=== PATIENT | male | born 1970 | race Caucasian/White ===

== ENCOUNTER 2019-06-11 09:04 | Emergency (ER) | payer BC ==
[2019-06-11] MEDS ORDERED: Sodium Chloride 0.9% 2.5 ML Syringe FLUSH PRN (09:31)
[2019-06-11] MEDS ORDERED: Aspirin 81 MG Tab.Chew PO ONE (09:31)
[2019-06-11] MEDS ORDERED: Sodium Chloride 0.9% 10 ML SDV IV PRN (09:31)
[2019-06-11] MEDS ORDERED: Sodium Chloride 0.9% 10 ML Syringe FLUSH PRN (09:31)
[2019-06-11 09:53] LABS: BLOOD UREA NITROGEN,BUN 22 mg/dL (7.0-18.0); CARBON DIOXIDE,CO2 22.3 mmol/L (21.0-32.0); CHLORIDE,CL 107 mmol/L (98-107); GLUCOSE RANDOM 105 mg/dL (74-106); POTASSIUM,K 4.7 mmol/L (3.5-5.1); SODIUM,NA 142 mmol/L (136-148)
--- NOTE | 2019-06-11 09:57 | CR ---
INDICATION: Chest pain. COMPARISON: None. TECHNIQUE: Portable AP chest. FINDINGS: Normal size cardiac silhouette. Clear lung bauer with no evidence of acute pneumonic infiltrates or CHF. No pneumothorax or pleural effusion. IMPRESSION: Negative portable AP chest. Dictated by Alireza Mir MD @ Jun 11 2019 9:55AM Signed by Dr. Alireza Mir @ Jun 11 2019 9:56AM
--- NOTE | 2019-06-11 13:52 | EDM.PDOC ---
ED HPI GENERAL MEDICAL PROBLEM - General Chief Complaint: General Stated Complaint: SOB Time Seen by Provider: 06/11/19 09:30 Source of Information: Reports: Patient History Limitations: Reports: No Limitations - History of Present Illness INITIAL COMMENTS - FREE TEXT/NARRATIVE: HISTORY AND PHYSICAL: History of present illness: Patient is a 48-year-old male presents to the ED with complaint of shortness of breath and palpitations. He states he was working this morning when he suddenly felt his heart racing, short of breath and dizzy. Symptoms have since resolved. He denies chest pain, cough, fevers, headache, nausea, vomiting, abdominal pain , diaphoresis. Past medical history of hypertension and TOSHIA on CPAP. Review of systems: As per history of present illness and below otherwise all systems reviewed and negative. Past medical history: As per history of present illness and as reviewed below otherwise noncontributory. Surgical history: As per history of present illness and as reviewed below otherwise noncontributory. Social history: No reported history of drug or alcohol abuse. Family history: As per history of present illness and as reviewed below otherwise noncontributory. Physical exam: General: Patient sitting comfortably in no acute distress and nontoxic appearing HEENT: Atraumatic, normocephalic, pupils reactive, negative for conjunctival pallor or scleral icterus, mucous membranes moist, throat clear, neck supple, nontender, trachea midline. No meningeal signs. Lungs: Clear to auscultation, breath sounds equal bilaterally, chest nontender. Heart: S1S2, regular, negative for clicks, rubs, or overt murmur. Abdomen: Soft, nondistended, nontender. Negative for masses or hepatosplenomegaly. Negative for costovertebral tenderness. No rigidity, rebound , guarding. Pelvis: Stable nontender. Genitourinary: Deferred. Rectal: Deferred. Extremities: Atraumatic, negative for cords or calf pain. Neurovascular unremarkable. Neuro: Awake, alert, oriented. Cranial nerves II through XII unremarkable. Cerebellum unremarkable. Motor and sensory unremarkable throughout. Exam nonfocal. Notes: Patient advised to follow up with PCP for further work up including zio patch. EKG showed NSR while in ED. Diagnostics: CBC, CMP, troponin, EKG, CXR Therapeutics: [] Prescriptions: Impression: Palpitations Plan: Follow up with primary care provider Return to ED as needed as discussed Definitive disposition and diagnosis as appropriate pending reevaluation and review of above. - Related Data Allergies Allergy/AdvReac Type Severity Reaction Status Date / Time No Known Allergies Allergy Verified 06/11/19 09:18 Home Meds: Home Meds Fish Oil/Borage/Flax/Om3,6,9#1 [[place] 3-6-9 Complex Softgel] 1 each PO DAILY 10/26 [History] Rutin/Hesp/Bioflav/C/Herb#196 [Bioflex] 2 cap PO BID 01/15/14 [History] Allopurinol [Zyloprim] 100 mg PO DAILY 06/11/19 [History] Diclofenac Sodium [Voltaren] 75 mg PO BID 06/11/19 [History] Lisinopril 40 mg PO DAILY 06/11/19 [History] Metoprolol Succinate 50 mg PO DAILY 06/11/19 [History] Past Medical History HEENT History: Reports: None Cardiovascular History: Reports: Hypertension Respiratory History: Reports: None Genitourinary History: Reports: None Musculoskeletal History: Reports: Gout Neurological History: Reports: None Psychiatric History: Reports: None Endocrine/Metabolic History: Reports: None Hematologic History: Reports: None Immunologic History: Reports: None Oncologic (Cancer) History: Reports: None Dermatologic History: Reports: None - Infectious Disease History Infectious Disease History: Reports: None - Past Surgical History Head Surgeries/Procedures: Reports: None GI Surgical History: Reports: Appendectomy, Cholecystectomy Other GI Surgeries/Procedures: Appendix 2000, galbladder 2009 Musculoskeletal Surgical History: Reports: Hip Replacement Other Musculoskeletal Surgeries/Procedures:: January 2015 Social & Family History - Family History Family Medical History: Noncontributory - Tobacco Use Smoking Status *Q: Never Smoker Second Hand Smoke Exposure: No - Caffeine Use Caffeine Use: Reports: Coffee - Recreational Drug Use Recreational Drug Use: No ED ROS GENERAL - Review of Systems Review Of Systems: ROS reveals no pertinent complaints other than HPI. ED EXAM, GENERAL - Physical Exam Exam: See Below (see dictation) Course - Vital Signs Last Recorded V/S: Last Vital Signs Temp 97.6 F 06/11/19 09:24 Pulse 54 L 06/11/19 10:19 Resp 15 06/11/19 10:19 BP 137/77 06/11/19 10:19 Pulse Ox 96 06/11/19 10:19 - Orders/Labs/Meds Orders: Active Orders 24 hr Category Date Time Status Cardiac Monitoring [RC] . DIRECTED Care 06/11/19 09:31 Active EKG Documentation Completion [RC] STAT Care 06/11/19 09:31 Active Oxygen Therapy [RC] PRN Care 06/11/19 09:31 Active Pulse Oximetry [RC] CONTINUOUS Care 06/11/19 09:31 Active Peripheral IV Insertion Adult [OM.PC] Stat Oth 06/11/19 09:31 Ordered Labs: Laboratory Tests 06/11/19 06/11/19 06/11/19 Range/Units 09:10 09:10 09:10 WBC 7.34 (4.0-11.0) K/uL RBC 4.88 (4.50-5.90) M/uL Hgb 14.7 (13.0-17.0) g/dL Hct 44.3 (38.0-50.0) % MCV 90.8 (80.0-98.0) fL MCH 30.1 (27.0-32.0) pg MCHC 33.2 (31.0-37.0) g/dL RDW Std Deviation 43.7 (28.0-62.0) fl RDW Coeff of Ella 13 (11.0-15.0) % Plt Count 238 (150-400) K/uL MPV 11.50 (7.40-12.00) fL Neut % (Auto) 62.3 (48.0-80.0) % Lymph % (Auto) 24.9 (16.0-40.0) % [place] % (Auto) 9.4 (0.0-15.0) % Eos % (Auto) 3.0 (0.0-7.0) % Baso % (Auto) 0.4 (0.0-1.5) % Neut # (Auto) 4.6 (1.4-5.7) K/uL Lymph # (Auto) 1.8 (0.6-2.4) K/uL [place] # (Auto) 0.7 (0.0-0.8) K/uL Eos # (Auto) 0.2 (0.0-0.7) K/uL Baso # (Auto) 0.0 (0.0-0.1) K/uL Nucleated RBC % 0.0 /100WBC Nucleated RBCs # 0 K/uL INR 0.87 Sodium 142 (136-148) mmol/L Potassium 4.7 (3.5-5.1) mmol/L Chloride 107 (98-107) mmol/L Carbon Dioxide 22.3 (21.0-32.0) mmol/L BUN 22 H (7.0-18.0) mg/dL Creatinine 1.1 (0.8-1.3) mg/dL Est Cr Clr Drug Dosing 86.52 mL/min Estimated GFR (MDRD) > 60.0 ml/min Glucose 105 (74-106) mg/dL Calcium 8.8 (8.5-10.1) mg/dL Total Bilirubin 0.5 (0.2-1.0) mg/dL AST 29 (15-37) IU/L ALT 33 (14-63) IU/L Alkaline Phosphatase 126 H (46-116) U/L Troponin I < 0.050 (0.000-0.056) ng/mL Total Protein 7.3 (6.4-8.2) g/dL Albumin 3.4 (3.4-5.0) g/dL Globulin 3.9 (2.6-4.0) g/dL Albumin/Globulin Ratio 0.9 (0.9-1.6) Meds: Medications Discontinued Medications Generic Name Dose Route Start Last Admin Trade Name Freq PRN Reason Stop Dose Admin Aspirin 324 mg 06/11/19 09:31 06/11/19 09:44 Aspirin PO 06/11/19 09:32 324 mg ONETIME ONE Administration Sodium Chloride 10 ml 06/11/19 09:31 06/11/19 09:44 Saline Flush FLUSH 10 ml ASDIRECTED PRN Administration Keep Vein Open Sodium Chloride 2.5 ml 06/11/19 09:31 06/11/19 09:44 Saline Flush FLUSH 2.5 ml ASDIRECTED PRN Administration Keep Vein Open Sodium Chloride 10 ml 06/11/19 09:31 06/11/19 09:45 Normal Saline IV 10 ml ASDIRECTED PRN Administration IV Use Departure - Departure Time of Disposition: 13:51 Disposition: Home, Self-Care 01 Condition: Good Clinical Impression: Palpitations - Discharge Information Instructions: Shortness of Breath, Adult, [id number] Referrals: PCP,Unknown [Primary Care Provider] - Forms: ED Department Discharge Additional Instructions: The following information is given to patients seen in the emergency department who are being discharged to home. This information is to outline your options for follow-up care. We provide all patients seen in our emergency department with a follow-up referral. The need for follow-up, as well as the timing and circumstances, are variable depending upon the specifics of your emergency department visit. If you don't have a primary care physician on staff, we will provide you with a referral. We always advise you to contact your personal physician following an emergency department visit to inform them of the circumstance of the visit and for follow-up with them and/or the need for any referrals to a consulting specialist. The emergency department will also refer you to a specialist when appropriate. This referral assures that you have the opportunity for follow-up care with a specialist. All of these measure are taken in an effort to provide you with optimal care, which includes your follow-up. Under all circumstances we always encourage you to contact your private physician who remains a resource for coordinating your care. When calling for follow-up care, please make the office aware that this follow-up is from your recent emergency room visit. If for any reason you are refused follow-up, please contact the [facility] Emergency Department at and asked to speak to the emergency department charge nurse. [facility] [address] [place] [address] [place] [address] 1. Please use Tylenol and/or Ibuprofen as needed for pain and fever management. 2. Get plenty of Rest. Encourage fluids to prevent dehydration. 3. Please follow up with your primary care provider. Return to the ED as needed as discussed. - My Orders Last 24 Hours: My Active Orders 06/11/19 09:31 Cardiac Monitoring [RC] . DIRECTED EKG Documentation Completion [RC] STAT Oxygen Therapy [RC] PRN Pulse Oximetry [RC] CONTINUOUS Peripheral IV Insertion Adult [OM.PC] Stat - Assessment/Plan Last 24 Hours: My Active Orders 06/11/19 09:31 Cardiac Monitoring [RC] . DIRECTED EKG Documentation Completion [RC] STAT Oxygen Therapy [RC] PRN Pulse Oximetry [RC] CONTINUOUS Peripheral IV Insertion Adult [OM.PC] Stat
== END 2019-06-11 10:36 | disposition home or self-care (01) ==
LOC: MW.ED 09:04
DX: R00.2 Palpitations (principal); I10 Essential (primary) hypertension; M10.9 Gout, unspecified; Z79.899 Other long term (current) drug therapy
CPT/HCPCS: 36415; 71045; 80053; 84484; 85025; 85610; 93005; 99285; A9270; J7050; 99284

== ENCOUNTER 2021-03-31 07:34 | Inpatient (IN) | payer BC, OTHER ==
[2021-03-31] MEDS ORDERED: Sodium Chloride 0.9% 10 ML Syringe FLUSH PRN (07:43)
[2021-03-31] MEDS ORDERED: Aspirin 81 MG Tab.Chew PO ONE (07:43)
[2021-03-31] MEDS ORDERED: Sodium Chloride 0.9% 2.5 ML Syringe FLUSH PRN (07:43)
[2021-03-31] MEDS ORDERED: Ketorolac 15 MG/ML SDV IVPUSH ONE (07:57)
--- NOTE | 2021-03-31 08:25 | CR ---
Indication: Dyspnea Comparison: Single view chest June 11, 2019 Technique: Single AP view chest Findings: There is hyperinflation and chronic interstitial change. There are extensive interstitial ground-glass and airspace opacities seen throughout the bilateral hemithoraces likely representing multifocal infiltrates versus pulmonary edema. The cardiac silhouette is mildly prominent. The bony thorax is grossly intact. Impression: Extensive interstitial and ground-glass airspace opacities seen throughout the bilateral hemithoraces likely representing multifocal infiltrates versus pulmonary edema. Correlate with history of kent virus infection. Dictated by Jcarlos Garsia MD @ 03/31/2021 8:24:[address] Jcarlos Garsia @ Mar 31 2021 8:24AM
[2021-03-31 08:38] LABS: BLOOD UREA NITROGEN,BUN 22 mg/dL (7.0-18.0); CHLORIDE,CL 98 mmol/L (98-107); GLUCOSE RANDOM 151 mg/dL (74-106); POTASSIUM,K 3.8 mmol/L (3.5-5.1); SODIUM,NA 133 mmol/L (136-148)
--- NOTE | 2021-03-31 10:21 | CT ---
Indication: Dyspnea, positive for kent virus Technique: Volumetric multidetector CT images of the chest were obtained after the administration of IV contrast. 100 cc Isovue 370 low osmolar intravenous contrast Comparison: Single view chest March 31, 2021 Findings: The thoracic inlet and thyroid gland are unremarkable. The thoracic aorta is nonaneurysmal. There is no central filling defect to suggest pulmonary embolism. There are reactive mediastinal and hilar lymph nodes appreciated. There is mild to moderate central bronchial thickening. There are extensive ground-glass, airspace, and interstitial opacities likely representing evolving multifocal bilateral infiltrates and/or superimposed pulmonary edema. There is no pneumothorax or pleural effusion. There is no evidence of pulmonary mass or suspicious pulmonary nodule. The partially visualized upper abdomen demonstrates prior cholecystectomy with mild hepatic steatosis. The thoracic vertebral body heights are grossly maintained with mild multi-level degenerative disc disease. Impression: Extensive interstitial, ground-glass and airspace opacities throughout the bilateral hemithoraces commensurate with multifocal bilateral infiltrates and/or pulmonary edema with reactive mediastinal and hilar lymph nodes. No definite evidence of pulmonary embolus. Please note that all CT scans at this facility use dose modulation, iterative reconstruction, and/or weight-based dosing when appropriate to reduce radiation dose to as low as reasonably achievable. Dictated by Jcarlos Garsia MD @ 03/31/2021 10:19:[address] Jcarlos Garsia @ Mar 31 2021 10:19AM
[2021-03-31] MEDS ORDERED: Dexamethasone 4 MG Tab PO STA (10:33)
--- NOTE | 2021-03-31 11:27 | PCM.HP.2 ---
H&P History of Present Illness - General Date of Service: 03/31/21 Admit Problem/Dx: Admission Diagnosis/Problem Admission Diagnosis/Problem Hypoxia - History of Present Illness Initial Comments - Free Text/Narative: 50-year-old male with past medical history including hypertension, gout, presents to the ER today with a cough, hypoxia. Patient admitted for Covid pneumonia, hypoxia. Patient states he developed a cough roughly 1 week ago. Patient states cough became worse last night. Patient also states he had a fever this morning on arrival to the ED. Patient's oxygen saturation was roughly 80% on arrival to the ED, patient was placed on 5-6 L nasal cannula oxygen saturations improved to 92%. Patient denies any recent contact with sick individuals. Patient denies chills, nausea, vomiting, abdominal pain, diarrhea. Patient denies chest pain, shortness of breath, dizziness, lightheadedness. Lab work on admission include white blood cell count 9.3, D-dimer 1.91, sodium 133, potassium 3.8, BUN 22, creatinine 1.5, hemoglobin A1c 5.6,. Patient is COVID-[address] angio negative for pulmonary embolism. Interstitial groundglass opacities with multifocal bilateral infiltrates and or pulmonary edema with mediastinal and hilar lymph nodes. Patient started on 200mg remdesivir in the ED Patient admitted to Inpatient MedSurg unit, will continue remdesivir, dexamethasone, oxygen support as needed. chest Pain Score (Numeric/FACES): 3 - Related Data Allergies/Adverse Reactions: Allergies Allergy/AdvReac Type Severity Reaction Status Date / Time No Known Allergies Allergy Verified 03/31/21 07:52 Home Medications: Home Meds Rutin/Hesp/Bioflav/C/Edykqw400 [Bioflex] 2 cap PO BID 01/15/14 [History] Diclofenac Sodium [Voltaren] 75 mg PO BID 06/11/19 [History] Metoprolol Succinate 50 mg PO DAILY 06/11/19 [History] allopurinoL [Zyloprim] 100 mg PO DAILY 06/11/19 [History] lisinopriL [Lisinopril] 40 mg PO DAILY 06/11/19 [History] Past Medical History HEENT History: Reports: None Cardiovascular History: Reports: Hypertension Respiratory History: Reports: None Gastrointestinal History: Reports: None Genitourinary History: Reports: None Musculoskeletal History: Reports: Gout Neurological History: Reports: None Psychiatric History: Reports: None Endocrine/Metabolic History: Reports: None Hematologic History: Reports: None Immunologic History: Reports: None Oncologic (Cancer) History: Reports: None Dermatologic History: Reports: None - Infectious Disease History Infectious Disease History: Reports: None - Past Surgical History Head Surgeries/Procedures: Reports: None HEENT Surgical History: Reports: None Cardiovascular Surgical History: Reports: None Respiratory Surgical History: Reports: None GI Surgical History: Reports: Appendectomy, Cholecystectomy Other GI Surgeries/Procedures: Appendix 2001, galbladder 2010 Male Surgical History: Reports: None Endocrine Surgical History: Reports: None Neurological Surgical History: Reports: None Musculoskeletal Surgical History: Reports: Hip Replacement Other Musculoskeletal Surgeries/Procedures:: January 2015 Oncologic Surgical History: Reports: None Dermatological Surgical History: Reports: None Social & Family History - Family History Family Medical History: No Pertinent Family History - Tobacco Use Tobacco Use Status *Q: Never Tobacco User - Caffeine Use Caffeine Use: Reports: Coffee - Recreational Drug Use Recreational Drug Use: No H&P Review of Systems - Review of Systems: Review Of Systems: See Below General: Denies: Fever, Chills, Weakness Pulmonary: Reports: Cough. Denies: Shortness of Breath, Wheezing Cardiovascular: Denies: Chest Pain, Edema Gastrointestinal: Denies: Abdominal Pain, Constipation, Diarrhea Psychiatric: Denies: Confusion, Depression Neurological: Denies: Confusion Exam - Exam Exam: See Below - Vital Signs Vital Signs: Last Vital Signs Temp 98.8 F 03/31/21 10:45 Pulse 73 03/31/21 10:45 Resp 20 03/31/21 10:45 BP 116/50 L 03/31/21 10:45 Pulse Ox 94 L 03/31/21 10:45 Weight: 329 lb - Exam General: Alert, Oriented Lungs: Clear to Auscultation, Normal Respiratory Effort Cardiovascular: Regular Rate, Regular Rhythm GI/Abdominal Exam: Soft, Non-Tender Extremities: No Pedal Edema Neuro Extensive - Mental Status: Alert, Oriented x3 Psychiatric: Alert - Patient Data Lab Results Last 24 hrs: Laboratory Results - last 24 hr 03/31/21 03/31/21 03/31/21 Range/Units 07:51 07:56 07:56 WBC 9.30 (4.0-11.0) K/uL RBC 4.84 (4.50-5.90) M/uL Hgb 14.7 (13.0-17.0) g/dL Hct 42.5 (38.0-50.0) % MCV 87.8 (80.0-98.0) fL MCH 30.4 (27.0-32.0) pg MCHC 34.6 (31.0-37.0) g/dL RDW Std Deviation 44.1 (28.0-62.0) fl RDW Coeff of Ella 14 (11.0-15.0) % Plt Count 218 (150-400) K/uL MPV 10.50 (7.40-12.00) fL Neut % (Auto) 80.3 H (48.0-80.0) % Lymph % (Auto) 9.6 L (16.0-40.0) % [place] % (Auto) 9.8 (0.0-15.0) % Eos % (Auto) 0.1 (0.0-7.0) % Baso % (Auto) 0.2 (0.0-1.5) % Neut # (Auto) 7.5 H (1.4-5.7) K/uL Lymph # (Auto) 0.9 (0.6-2.4) K/uL [place] # (Auto) 0.9 H (0.0-0.8) K/uL Eos # (Auto) 0.0 (0.0-0.7) K/uL Baso # (Auto) 0.0 (0.0-0.1) K/uL Nucleated RBC % 0.0 /100WBC Nucleated RBCs # 0 K/uL INR 0.94 D-Dimer, Quantitative 1.91 H (0.0-0.50) mg/L FEU Sodium (136-148) mmol/L Potassium (3.5-5.1) mmol/L Chloride (98-107) mmol/L Carbon Dioxide (21.0-32.0) mmol/L BUN (7.0-18.0) mg/dL Creatinine (0.8-1.3) mg/dL Est Cr Clr Drug Dosing mL/min Estimated GFR (MDRD) ml/min Glucose (74-106) mg/dL Lactic Acid (0.4-2.0) mmol/L Calcium (8.5-10.1) mg/dL Magnesium (1.8-2.4) mg/dL Total Bilirubin (0.2-1.0) mg/dL Direct Bilirubin (0.0-0.5) mg/dL AST (15-37) IU/L ALT (14-63) IU/L Alkaline Phosphatase (46-116) U/L Troponin I (0.000-0.056) ng/mL Total Protein (6.4-8.2) g/dL Albumin (3.4-5.0) g/dL Globulin (2.6-4.0) g/dL Albumin/Globulin Ratio (0.9-1.6) SARS-CoV-2 RNA (YAEL) POSITIVE H (NEGATIVE) 03/31/21 03/31/21 03/31/21 Range/Units 07:56 07:56 07:56 WBC (4.0-11.0) K/uL RBC (4.50-5.90) M/uL Hgb (13.0-17.0) g/dL Hct (38.0-50.0) % MCV (80.0-98.0) fL MCH (27.0-32.0) pg MCHC (31.0-37.0) g/dL RDW Std Deviation (28.0-62.0) fl RDW Coeff of Ella (11.0-15.0) % Plt Count (150-400) K/uL MPV (7.40-12.00) fL Neut % (Auto) (48.0-80.0) % Lymph % (Auto) (16.0-40.0) % [place] % (Auto) (0.0-15.0) % Eos % (Auto) (0.0-7.0) % Baso % (Auto) (0.0-1.5) % Neut # (Auto) (1.4-5.7) K/uL Lymph # (Auto) (0.6-2.4) K/uL [place] # (Auto) (0.0-0.8) K/uL Eos # (Auto) (0.0-0.7) K/uL Baso # (Auto) (0.0-0.1) K/uL Nucleated RBC % /100WBC Nucleated RBCs # K/uL INR D-Dimer, Quantitative (0.0-0.50) mg/L FEU Sodium 133 L (136-148) mmol/L Potassium 3.8 (3.5-5.1) mmol/L Chloride 98 (98-107) mmol/L Carbon Dioxide 25.0 (21.0-32.0) mmol/L BUN 22 H (7.0-18.0) mg/dL Creatinine 1.5 H (0.8-1.3) mg/dL Est Cr Clr Drug Dosing 62.05 mL/min Estimated GFR (MDRD) 49.3 ml/min Glucose 151 H (74-106) mg/dL Lactic Acid 1.8 (0.4-2.0) mmol/L Calcium 8.3 L (8.5-10.1) mg/dL Magnesium 2.1 (1.8-2.4) mg/dL Total Bilirubin 0.7 (0.2-1.0) mg/dL Direct Bilirubin 0.10 (0.0-0.5) mg/dL AST 62 H (15-37) IU/L ALT 58 (14-63) IU/L Alkaline Phosphatase 79 (46-116) U/L Troponin I < 0.050 (0.000-0.056) ng/mL Total Protein 7.5 (6.4-8.2) g/dL Albumin 2.8 L (3.4-5.0) g/dL Globulin 4.7 H (2.6-4.0) g/dL Albumin/Globulin Ratio 0.6 L (0.9-1.6) SARS-CoV-2 RNA (YAEL) (NEGATIVE) Result Diagrams: 03/31/21 07:56 03/31/21 07:56 Jose Rafael Results Last 24 hrs: Microbiology 03/31/21 08:10 Anaerobic Blood Culture - Final Blood - Venous - Lab Draw Sepsis Event Note - Evaluation Sepsis Screening Result: No Definite Risk - Focused Exam Vital Signs: Vital Signs Temp Pulse Resp BP Pulse Ox 03/31/21 10:45 98.8 F 73 20 116/50 L 94 L 03/31/21 09:50 63 92 L 03/31/21 09:11 71 140/56 L 93 L 03/31/21 08:41 71 148/58 H 94 L 03/31/21 08:11 77 167/53 H 93 L 03/31/21 07:51 82 93 L 03/31/21 07:49 102.5 F H 91 22 H 167/53 H 80 L - Problem List (1) COVID-19 SNOMED Code(s): 026261246 ICD Code: U07.1 - COVID-19 Status: Acute Current Visit: Yes (2) HTN (hypertension) SNOMED Code(s): 67855456 ICD Code: I10 - ESSENTIAL (PRIMARY) HYPERTENSION Status: Acute Current Visit: Yes (3) Gout SNOMED Code(s): 52864345 ICD Code: M10.9 - GOUT, UNSPECIFIED Status: Acute Current Visit: Yes Problem List Initiated/Reviewed/Updated: Yes Orders Last 24hrs: Active Orders 24 hr Category Date Time Status Admission Status [Patient Status] [ADT] Stat ADT 03/31/21 10:38 Active Cardiac Monitoring [RC] . DIRECTED Care 03/31/21 07:43 Active EKG Documentation Completion [RC] STAT Care 03/31/21 07:42 Active Pulse Oximetry [RC] ASDIRECTED Care 03/31/21 07:43 Active BILIRUBIN DIRECT [CHEM] DAILY Lab 04/01/21 10:45 Ordered BILIRUBIN DIRECT [CHEM] DAILY Lab 04/02/21 10:45 Ordered BILIRUBIN DIRECT [CHEM] DAILY Lab 04/03/21 10:45 Ordered BILIRUBIN DIRECT [CHEM] DAILY Lab 04/04/21 10:45 Ordered CULTURE BLOOD [BC] Stat Lab 03/31/21 08:05 Received CULTURE BLOOD [BC] Stat Lab 03/31/21 08:10 Results Remdesivir 200 mg Med 03/31/21 10:37 Active Sodium Chloride 0.9% [Normal Saline] 250 ml IV ONETIME Sodium Chloride 0.9% [Saline Flush] Med 03/31/21 07:43 Active 10 ml FLUSH ASDIRECTED PRN Sodium Chloride 0.9% [Saline Flush] Med 03/31/21 07:43 Active 2.5 ml FLUSH ASDIRECTED PRN Blood Culture x2 Reflex Set [OM.PC] Stat Oth 03/31/21 07:56 Ordered Saline Lock Insert [OM.PC] Stat Oth 03/31/21 07:43 Ordered Medication Orders Remdesivir 200 mg/ Sodium (Chloride) 250 mls @ 250 mls/hr IV ONETIME ONE Stop: 03/31/21 11:36 Sodium Chloride (Sodium Chloride 0.9% 10 Ml Syringe) 10 ml FLUSH ASDIRECTED PRN PRN Reason: Keep Vein Open Last Admin: 03/31/21 08:00 Dose: 10 ml Documented by: CARLOS Sodium Chloride (Sodium Chloride 0.9% 2.5 Ml Syringe) 2.5 ml FLUSH ASDIRECTED PRN PRN Reason: Keep Vein Open Last Admin: 03/31/21 08:00 Dose: 2.5 ml Documented by: CARLOS Assessment/Plan Comment:: Covid [place]- Remdesivir (200mg X 1, day 2-5 100mg X 4) Dexamethasone 6 mg p.o. X 10 days Levaquin 750mg Q24 Prone positioning, Oxygen support-maintain 02 saturations above 92%(Currently on High Flow), incentive spirometry, Combivent, Lovenox 40mg, Tylenol fever/pain, Telemetry
[2021-03-31] MEDS: REMDESIVIR 200 MG in Sodium Chloride 0.9% 250 ML IV ONE ×2 (11:33→11:37)
[2021-03-31] MEDS ORDERED: Albuterol/Ipratropium 3.0-0.5 MG/3 ML Neb Soln NEB PRN (11:34)
--- NOTE | 2021-03-31 12:07 | PCM.EKG ---
#1 Interpretation EKG Date: 03/31/21 Time: 07:39 Rhythm: NSR Rate (Beats/Min): 83 [place]: Normal P-Wave: Present QRS: Normal ST-T: Normal QT: Normal Comparison: No Change (06/11/19) EKG Interpretation Comments: Sinus Rhythm
[2021-03-31] MEDS: Albuterol/Ipratropium 4 GM Inhalation Spray INH SCH ×2 (12:55→18:00)
[2021-03-31] MEDS: Enoxaparin 40 MG/0.4 ML Syringe SUBCUT SCH (12:56)
[2021-03-31] MEDS: Levofloxacin 750 MG Tab PO SCH (12:56)
[2021-03-31 13:13] LABS: HEMOGLOBIN A1C 5.6 %
[2021-03-31] MEDS ORDERED: Iopamidol 755 MG/ML 500 ML Multipack Bottle IVPUSH STA (15:25)
[2021-03-31] MEDS ORDERED: Benzonatate 100 MG Cap PO PRN (18:57)
[2021-03-31] MEDS ORDERED: Lactated Ringers 500 ML IV ONE (18:58)
--- NOTE | 2021-03-31 20:03 | EDM.PDOC ---
ED HPI GENERAL MEDICAL PROBLEM - General Chief Complaint: Respiratory Problem Stated Complaint: SHORTNESS OF BREATH Time Seen by Provider: 03/31/21 07:36 - History of Present Illness INITIAL COMMENTS - FREE TEXT/NARRATIVE: CHIEF COMPLAINT(S): Shortness of breath HISTORY OF PRESENT ILLNESS: This is a 50-year-old man with a past medical history of hypertension and gout who comes to the emergency department with a chief complaint of cough and shortness of breath. The patient states that for approximately 1 week he has been experiencing a cough however it started to worsen last night. He denies any chest pain, abdominal pain, nausea or vomiting. He denies any diaphoresis. He denies any lower extremity edema, recent travel, recent surgery or prior study of DVT or PE. He denies any recent contact with any Covid patients or any other person known with Covid. He denies any fevers but states he does feel some chills. He denies any exertional dyspnea or orthopnea. Denies any pain at all whatsoever. The cough is no nproductive. REVIEW OF SYSTEMS: Constitutional: Positive for chills Eyes: Denies eye pain Ears, Nose, Mouth, & Throat: Denies earache Cardiovascular: Denies chest pain Respiratory: Positive for shortness of breath and cough Gastrointestinal: Denies Nausea, vomiting, diarrhea, hematochezia. Genitourinary: Denies hematuria Skin:Denies a rash MSK: Denies joint pain Neurological: Denies blurred vision Psychiatric: Denies depression PAST MEDICAL HISTORY: As per history of present illness and as reviewed below otherwise noncontributory. SURGICAL HISTORY: As per history of present illness and as reviewed below otherwise noncontributory. SOCIAL HISTORY: As per history of present illness and as reviewed below otherwise noncontributory. FAMILY HISTORY: As per history of present illness and as reviewed below otherwise noncontributory. EXAMINATION OF ORGAN SYSTEMS/BODY AREAS: Constitutional: Blood pressure was 167/53, heart rate 91, respiratory rate 22 with an oxygen saturation of 80% on room air. Temperature 39.2 General: Obese gentleman who appears to be dyspneic but is speaking in full sentences Psychiatric: Appropriate mood and affect. Eyes: No scleral icterus or conjunctival erythema ENMT: Moist mucous membranes. No pharyngeal erythema Cardiovascular: Regular, rate, and rhythm. No gallops, murmurs, or rubs. Bilateral upper extremity pulses symmetric and intact. No peripheral edema. No JVD. Respiratory: Lungs clear to auscultation bilaterally. No wheezes, rales, or rhonchi. Speaking in full sentences. Mild increased work of breathing. Gastrointestinal: Soft, non-tender, non-distended. Normoactive bowel sounds Genitourinary: No suprapubic tenderness Musculoskeletal: Normal range of motion. Skin: No lesions or abrasions. Neurological: Alert, GCS 15 MEDICAL DECISION MAKING AND COURSE IN THE ED WITH INTERPRETATION/REVIEW OF DIAGNOSTIC STUDIES: This is a 50-year-old man with a past medical history of hypertension and gout who comes to the emergency department with 1 week of worsening cough associated with shortness of breath who is dyspneic but speaking in full sentences who is hypoxic and febrile. At this time we did place the patient on nasal cannula at 5 L and his oxygen saturation with pulse oximetry and good waveform came up to 94%. Cardiac monitoring at this time did reveal sinus rhythm. At this time we will obtain labs including blood cultures. We will hold off on fluid administration at this time until further labs have been obtained. At this time the hypoxia and his appearance do appear suspicious for COVID-19 pneumonia and likely viral and unlikely bacterial. Will obtain a chest x-ray, EKG and obtain a D-dimer to evaluate need for possible pulmonary embolism. He is low risk however if this is Covid he does have high risk for pulmonary embolism. Patient was amenable to this plan. Laboratory analysis revealed an elevated D-dimer at 1.91, hyponatremia at 133, elevated BUN at 22 and a creatinine of 1.5, hyperglycemia and mild elevation AST at 62. Troponin was negative. Covid was positive. The radiological images were viewed by myself along with reading the report from the radiologist. Chest x-ray reveals bilateral interstitial and groundglass airspace opacities suggesting multifocal infiltrates versus pulmonary edema. Given the elevated D-dimer I discussed that we would obtain a CT angiogram. I discussed that he was Covid positive and given that he needs to be on oxygen we will admit him to the hospital pending further work-up. He was amenable to this plan. I did discuss this with his and encouraged her to quarantine given that she has been exposed. The radiological images were viewed by myself along with reading the report from the radiologist. CT angiogram of the chest does not reveal any acute pulmonary embolism. Extensive interstitial groundglass and airspace opacity through bilateral hemothoraces. After imaging I did contact our hospitalist Dr. Yo who accepted the patient for admission. I did start the patient on dexamethasone and remdesivir per hospitalist request. DISPOSITION: Patient was admitted to the hospital in stable condition. CONDITION: Serious PROCEDURES: Cardiac monitoring interpretation, pulse oximetry interpretation FINAL IMPRESSION(S)/DIAGNOSES: 1. Acute hypoxic respiratory failure requiring nasal cannula secondary to COVID-19 pneumonia 2. Acute COVID-19 pneumonia 3. Acute kidney injury Critical Care Procedure Note Authorized and performed by: Denzel Lugo M.D. Critical Care Time: 35 minutes Due to a high probability of clinically significant, life threatening deterioration, the patient required my highest level of preparedness to intervene emergently and I personally spent this critical care time directly and personally managing the patient. This critical care time included obtaining a history, examining the patient, pulse oximetry; ordering and review of studies; arranging urgent treatment with development of a management plan; evaluation of a patients reponse to treatment; frequent assessment; and discussions with other providers. This critical care time was performed to assess and manage the high probability of imminent, life threatening deterioration that could result in multiorgan failure. It was exclusive of separate billable procedures and treating other patients. Please see MDM section and rest of the note for further information on patient assessment and treatment. Please see MDM section and rest of the note for further information on patient assessment and treatment. Denzel Lugo M.D. chest Pain Score (Numeric/FACES): 1 - Related Data Allergies Allergy/AdvReac Type Severity Reaction Status Date / Time No Known Allergies Allergy Verified 03/31/21 07:52 Home Meds: Home Meds Rutin/Hesp/Bioflav/C/[id number] [Bioflex] 2 cap PO BID 01/15/14 [History] Diclofenac Sodium [Voltaren] 75 mg PO BID 06/11/19 [History] Metoprolol Succinate 50 mg PO DAILY 06/11/19 [History] allopurinoL [Zyloprim] 100 mg PO DAILY 06/11/19 [History] lisinopriL [Lisinopril] 40 mg PO DAILY 06/11/19 [History] Past Medical History HEENT History: Reports: None Cardiovascular History: Reports: Hypertension Respiratory History: Reports: Sleep Apnea Gastrointestinal History: Reports: None Genitourinary History: Reports: None Musculoskeletal History: Reports: Arthritis Neurological History: Reports: None Psychiatric History: Reports: None Endocrine/Metabolic History: Reports: None Hematologic History: Reports: None Immunologic History: Reports: None Oncologic (Cancer) History: Reports: None Dermatologic History: Reports: None - Infectious Disease History Infectious Disease History: Reports: None - Past Surgical History Head Surgeries/Procedures: Reports: None HEENT Surgical History: Reports: None Cardiovascular Surgical History: Reports: None Respiratory Surgical History: Reports: None GI Surgical History: Reports: Appendectomy, Cholecystectomy Other GI Surgeries/Procedures: Appendix 2001, galbladder 2009 Male Surgical History: Reports: None Endocrine Surgical History: Reports: None Neurological Surgical History: Reports: None Musculoskeletal Surgical History: Reports: Hip Replacement Other Musculoskeletal Surgeries/Procedures:: January 2015 Oncologic Surgical History: Reports: None Dermatological Surgical History: Reports: None Social & Family History - Family History Family Medical History: No Pertinent Family History HEENT: Reports: None : Reports: Dialysis Other Family History: Brother- Rene Toth Musculoskeletal: Reports: Gout Other Musculoskeletal Family History: Brother Neurological: Reports: MS Oncologic: Reports: Brain, Lung Other Oncologic Family History: Mom - Tobacco Use Tobacco Use Status *Q: Never Tobacco User Second Hand Smoke Exposure: No - Caffeine Use Caffeine Use: Reports: Soda - Recreational Drug Use Recreational Drug Use: No ED ROS GENERAL - Review of Systems Review Of Systems: See Below ED EXAM, GENERAL - Physical Exam Exam: See Below GI/Abdominal: Soft, Non-Tender Extremities: No Pedal Edema Course - Vital Signs Last Recorded V/S: Last Vital Signs Temp 36.8 C 03/31/21 19:56 Pulse 62 03/31/21 19:56 Resp 17 03/31/21 19:56 BP 139/62 03/31/21 19:56 Pulse Ox 86 L 03/31/21 19:56 - Orders/Labs/Meds Orders: Active Orders 24 hr Category Date Time Status Admission Status [Patient Status] [ADT] Stat ADT 03/31/21 10:38 Active Cardiac Monitoring [RC] Q8H Care 03/31/21 07:43 Active Pulse Oximetry [RC] ASDIRECTED Care 03/31/21 07:43 Active CULTURE BLOOD [BC] Stat Lab 03/31/21 08:05 Received CULTURE BLOOD [BC] Stat Lab 03/31/21 08:10 Results Sodium Chloride 0.9% [Saline Flush] Med 03/31/21 07:43 Active 10 ml FLUSH ASDIRECTED PRN Sodium Chloride 0.9% [Saline Flush] Med 03/31/21 07:43 Active 2.5 ml FLUSH ASDIRECTED PRN Blood Culture x2 Reflex Set [OM.PC] Stat Oth 03/31/21 07:56 Ordered Saline Lock Insert [OM.PC] Stat Ot 03/31/21 07:43 Ordered Medication Orders Acetaminophen (Acetaminophen 325 Mg Tab) 650 mg PO Q4H PRN PRN Reason: Pain (Mild 1-3)/fever Albuterol/Ipratropium (Albuterol/Ipratropium 4 Gm Inhalation [place]) 2 gm INH QID [facility] Last Admin: 03/31/21 18:00 Dose: 2 puff Documented by: Admin: 03/31/21 12:55 Dose: 2 puff Documented by: SHAWNEE Benzonatate (Benzonatate 100 Mg Cap) 200 mg PO Q8H PRN PRN Reason: Cough Dexamethasone (Dexamethasone 4 Mg Tab) 6 mg PO Q24H [facility] Enoxaparin Sodium (Enoxaparin 40 Mg/0.4 Ml Syringe) 40 mg SUBCUT Q24H [facility] Last Admin: 03/31/21 12:56 Dose: 40 mg Documented by: SHAWNEE Remdesivir 100 mg/ Sodium (Chloride) 100 mls @ 100 mls/hr IV Q24H [facility] Stop: 04/04/21 10:59 Levofloxacin (Levofloxacin 750 Mg Tab) 750 mg PO Q24H [facility] Last Admin: 03/31/21 12:56 Dose: 750 mg Documented by: SHAWNEE Metoprolol Succinate (Metoprolol Succinate 50 Mg Tab.Er) 50 mg PO DAILY [facility] Sodium Chloride (Sodium Chloride 0.9% 10 Ml Syringe) 10 ml FLUSH ASDIRECTED PRN PRN Reason: Keep Vein Open Last Admin: 03/31/21 08:00 Dose: 10 ml Documented by: CARLOS Sodium Chloride (Sodium Chloride 0.9% 2.5 Ml Syringe) 2.5 ml FLUSH ASDIRECTED PRN PRN Reason: Keep Vein Open Last Admin: 03/31/21 08:00 Dose: 2.5 ml Documented by: CARLOS Labs: Laboratory Tests 03/31/21 03/31/21 03/31/21 Range/Units 07:51 07:56 07:56 WBC 9.30 (4.0-11.0) K/uL RBC 4.84 (4.50-5.90) M/uL Hgb 14.7 (13.0-17.0) g/dL Hct 42.5 (38.0-50.0) % MCV 87.8 (80.0-98.0) fL MCH 30.4 (27.0-32.0) pg MCHC 34.6 (31.0-37.0) g/dL RDW Std Deviation 44.1 (28.0-62.0) fl RDW Coeff of Ella 14 (11.0-15.0) % Plt Count 218 (150-400) K/uL MPV 10.50 (7.40-12.00) fL Neut % (Auto) 80.3 H (48.0-80.0) % Lymph % (Auto) 9.6 L (16.0-40.0) % Traill % (Auto) 9.8 (0.0-15.0) % Eos % (Auto) 0.1 (0.0-7.0) % Baso % (Auto) 0.2 (0.0-1.5) % Neut # (Auto) 7.5 H (1.4-5.7) K/uL Lymph # (Auto) 0.9 (0.6-2.4) K/uL Traill # (Auto) 0.9 H (0.0-0.8) K/uL Eos # (Auto) 0.0 (0.0-0.7) K/uL Baso # (Auto) 0.0 (0.0-0.1) K/uL Nucleated RBC % 0.0 /100WBC Nucleated RBCs # 0 K/uL INR 0.94 D-Dimer, Quantitative 1.91 H (0.0-0.50) mg/L FEU Sodium (136-148) mmol/L Potassium (3.5-5.1) mmol/L Chloride (98-107) mmol/L Carbon Dioxide (21.0-32.0) mmol/L BUN (7.0-18.0) mg/dL Creatinine (0.8-1.3) mg/dL Est Cr Clr Drug Dosing mL/min Estimated GFR (MDRD) ml/min Glucose (74-106) mg/dL Hemoglobin A1c (4.5 - 6.2) % Lactic Acid (0.4-2.0) mmol/L Calcium (8.5-10.1) mg/dL Magnesium (1.8-2.4) mg/dL Total Bilirubin (0.2-1.0) mg/dL Direct Bilirubin (0.0-0.5) mg/dL AST (15-37) IU/L ALT (14-63) IU/L Alkaline Phosphatase (46-116) U/L Troponin I (0.000-0.056) ng/mL Total Protein (6.4-8.2) g/dL Albumin (3.4-5.0) g/dL Globulin (2.6-4.0) g/dL Albumin/Globulin Ratio (0.9-1.6) SARS-CoV-2 RNA (YAEL) POSITIVE H (NEGATIVE) 03/31/21 03/31/21 03/31/21 Range/Units 07:56 07:56 07:56 WBC (4.0-11.0) K/uL RBC (4.50-5.90) M/uL Hgb (13.0-17.0) g/dL Hct (38.0-50.0) % MCV (80.0-98.0) fL MCH (27.0-32.0) pg MCHC (31.0-37.0) g/dL RDW Std Deviation (28.0-62.0) fl RDW Coeff of Ella (11.0-15.0) % Plt Count (150-400) K/uL MPV (7.40-12.00) fL Neut % (Auto) (48.0-80.0) % Lymph % (Auto) (16.0-40.0) % Traill % (Auto) (0.0-15.0) % Eos % (Auto) (0.0-7.0) % Baso % (Auto) (0.0-1.5) % Neut # (Auto) (1.4-5.7) K/uL Lymph # (Auto) (0.6-2.4) K/uL Traill # (Auto) (0.0-0.8) K/uL Eos # (Auto) (0.0-0.7) K/uL Baso # (Auto) (0.0-0.1) K/uL Nucleated RBC % /100WBC Nucleated RBCs # K/uL INR D-Dimer, Quantitative (0.0-0.50) mg/L FEU Sodium 133 L (136-148) mmol/L Potassium 3.8 (3.5-5.1) mmol/L Chloride 98 (98-107) mmol/L Carbon Dioxide 25.0 (21.0-32.0) mmol/L BUN 22 H (7.0-18.0) mg/dL Creatinine 1.5 H (0.8-1.3) mg/dL Est Cr Clr Drug Dosing 62.05 mL/min Estimated GFR (MDRD) 49.3 ml/min Glucose 151 H (74-106) mg/dL Hemoglobin A1c (4.5 - 6.2) % Lactic Acid 1.8 (0.4-2.0) mmol/L Calcium 8.3 L (8.5-10.1) mg/dL Magnesium 2.1 (1.8-2.4) mg/dL Total Bilirubin 0.7 (0.2-1.0) mg/dL Direct Bilirubin 0.10 (0.0-0.5) mg/dL AST 62 H (15-37) IU/L ALT 58 (14-63) IU/L Alkaline Phosphatase 79 (46-116) U/L Troponin I < 0.050 (0.000-0.056) ng/mL Total Protein 7.5 (6.4-8.2) g/dL Albumin 2.8 L (3.4-5.0) g/dL Globulin 4.7 H (2.6-4.0) g/dL Albumin/Globulin Ratio 0.6 L (0.9-1.6) SARS-CoV-2 RNA (YAEL) (NEGATIVE) 03/31/21 Range/Units 07:57 WBC (4.0-11.0) K/uL RBC (4.50-5.90) M/uL Hgb (13.0-17.0) g/dL Hct (38.0-50.0) % MCV (80.0-98.0) fL MCH (27.0-32.0) pg MCHC (31.0-37.0) g/dL RDW Std Deviation (28.0-62.0) fl RDW Coeff of Ella (11.0-15.0) % Plt Count (150-400) K/uL MPV (7.40-12.00) fL Neut % (Auto) (48.0-80.0) % Lymph % (Auto) (16.0-40.0) % Traill % (Auto) (0.0-15.0) % Eos % (Auto) (0.0-7.0) % Baso % (Auto) (0.0-1.5) % Neut # (Auto) (1.4-5.7) K/uL Lymph # (Auto) (0.6-2.4) K/uL Traill # (Auto) (0.0-0.8) K/uL Eos # (Auto) (0.0-0.7) K/uL Baso # (Auto) (0.0-0.1) K/uL Nucleated RBC % /100WBC Nucleated RBCs # K/uL INR D-Dimer, Quantitative (0.0-0.50) mg/L FEU Sodium (136-148) mmol/L Potassium (3.5-5.1) mmol/L Chloride (98-107) mmol/L Carbon Dioxide (21.0-32.0) mmol/L BUN (7.0-18.0) mg/dL Creatinine (0.8-1.3) mg/dL Est Cr Clr Drug Dosing mL/min Estimated GFR (MDRD) ml/min Glucose (74-106) mg/dL Hemoglobin A1c 5.6 (4.5 - 6.2) % Lactic Acid (0.4-2.0) mmol/L Calcium (8.5-10.1) mg/dL Magnesium (1.8-2.4) mg/dL Total Bilirubin (0.2-1.0) mg/dL Direct Bilirubin (0.0-0.5) mg/dL AST (15-37) IU/L ALT (14-63) IU/L Alkaline Phosphatase (46-116) U/L Troponin I (0.000-0.056) ng/mL Total Protein (6.4-8.2) g/dL Albumin (3.4-5.0) g/dL Globulin (2.6-4.0) g/dL Albumin/Globulin Ratio (0.9-1.6) SARS-CoV-2 RNA (YAEL) (NEGATIVE) Meds: Medications Generic Name Dose Route Start Last Admin Trade Name Umbertoq PRN Reason Stop Dose Admin Acetaminophen 650 mg 03/31/21 11:57 Acetaminophen 325 Mg Tab PO Q4H PRN Pain (Mild 1-3)/fever Albuterol/Ipratropium 2 gm 03/31/21 12:00 03/31/21 18:00 Albuterol/Ipratropium 4 Gm Inhalation [place] INH 2 puff QID CELESTE Administration Benzonatate 200 mg 03/31/21 18:57 Benzonatate 100 Mg Cap PO Q8H PRN Cough Dexamethasone 6 mg 04/01/21 10:00 Dexamethasone 4 Mg Tab PO Q24H [facility] Enoxaparin Sodium 40 mg 03/31/21 12:00 03/31/21 12:56 Enoxaparin 40 Mg/0.4 Ml Syringe SUBCUT 40 mg Q24H CELESTE Administration Remdesivir 100 mg/ Sodium 100 mls @ 100 mls/hr 04/01/21 10:00 Chloride IV 04/04/21 10:59 Q24H CELESTE Levofloxacin 750 mg 03/31/21 12:00 03/31/21 12:56 Levofloxacin 750 Mg Tab PO 750 mg Q24H CELESTE Administration Metoprolol Succinate 50 mg 04/01/21 09:00 Metoprolol Succinate 50 Mg Tab.Er PO DAILY CELESTE Sodium Chloride 10 ml 03/31/21 07:43 03/31/21 08:00 Sodium Chloride 0.9% 10 Ml Syringe FLUSH 10 ml ASDIRECTED PRN Administration Keep Vein Open Sodium Chloride 2.5 ml 03/31/21 07:43 03/31/21 08:00 Sodium Chloride 0.9% 2.5 Ml Syringe FLUSH 2.5 ml ASDIRECTED PRN Administration Keep Vein Open Discontinued Medications Generic Name Dose Route Start Last Admin Trade Name Freq PRN Reason Stop Dose Admin Albuterol/Ipratropium 3 ml 03/31/21 11:34 Albuterol/Ipratropium 3.0-0.5 Mg/3 Ml Neb Soln NEB Q4HRRT PRN Shortness of Breath Allopurinol 100 mg 04/01/21 09:00 Allopurinol 100 Mg Tab PO DAILY CELESTE Aspirin 324 mg 03/31/21 07:43 03/31/21 08:01 Aspirin 81 Mg Tab.Chew PO 03/31/21 07:44 324 mg ONETIME ONE Administration Dexamethasone 6 mg 03/31/21 10:33 03/31/21 11:34 Dexamethasone 4 Mg Tab PO 03/31/21 10:34 6 mg DAILY STA Administration Remdesivir 200 mg/ Sodium 250 mls @ 250 mls/hr 03/31/21 10:37 03/31/21 11:33 Chloride IV 03/31/21 11:36 250 mls/hr ONETIME ONE Administration Lactated Ringer's 500 mls @ 999 mls/hr 03/31/21 18:58 03/31/21 19:53 Ringers, Lactated IV 03/31/21 19:28 999 mls/hr .BOLUS ONE Administration Iopamidol 100 ml 03/31/21 15:25 03/31/21 15:25 Iopamidol 755 Mg/Ml 500 Ml Multipack Bottle IVPUSH 03/31/21 15:26 100 ml ONETIME STA Administration Ketorolac Tromethamine 15 mg 03/31/21 07:57 03/31/21 08:01 Ketorolac 15 Mg/Ml Sdv IVPUSH 03/31/21 07:58 15 mg ONETIME ONE Administration Departure - Departure Time of Disposition: 10:38 Disposition: Admitted As Inpatient 65 Condition: Serious Clinical Impression: COVID-19 - Discharge Information Sepsis Event Note (ED) - Evaluation Sepsis Screening Result: No Definite Risk - Focused Exam Vital Signs: Vital Signs Temp Pulse Resp BP Pulse Ox 03/31/21 10:45 37.1 C 73 20 116/50 L 94 L 03/31/21 09:50 63 92 L 03/31/21 09:11 71 140/56 L 93 L 03/31/21 08:41 71 148/58 H 94 L 03/31/21 08:11 77 167/53 H 93 L - My Orders Last 24 Hours: My Active Orders 03/31/21 07:43 Cardiac Monitoring [RC] Q8H Pulse Oximetry [RC] ASDIRECTED Sodium Chloride 0.9% [Saline Flush] 10 ml FLUSH ASDIRECTED PRN Sodium Chloride 0.9% [Saline Flush] 2.5 ml FLUSH ASDIRECTED PRN Saline Lock Insert [OM.PC] Stat 03/31/21 07:56 Blood Culture x2 Reflex Set [OM.PC] Stat 03/31/21 08:05 CULTURE BLOOD [BC] Stat 03/31/21 08:10 CULTURE BLOOD [BC] Stat 03/31/21 10:38 Admission Status [Patient Status] [ADT] Stat - Assessment/Plan Last 24 Hours: My Active Orders 03/31/21 07:43 Cardiac Monitoring [RC] Q8H Pulse Oximetry [RC] ASDIRECTED Sodium Chloride 0.9% [Saline Flush] 10 ml FLUSH ASDIRECTED PRN Sodium Chloride 0.9% [Saline Flush] 2.5 ml FLUSH ASDIRECTED PRN Saline Lock Insert [OM.PC] Stat 03/31/21 07:56 Blood Culture x2 Reflex Set [OM.PC] Stat 03/31/21 08:05 CULTURE BLOOD [BC] Stat 03/31/21 08:10 CULTURE BLOOD [BC] Stat 03/31/21 10:38 Admission Status [Patient Status] [ADT] Stat
[2021-03-31] MEDS ORDERED: Albuterol/Ipratropium 4 GM Inhalation Spray INH PRN (23:01)
[2021-04-01] MEDS: Albuterol/Ipratropium 3.0-0.5 MG/3 ML Neb Soln NEB SCH ×6 (01:21→21:49)
--- NOTE | 2021-04-01 01:32 | PN ---
TH[facility] Physician - Brief Progress [id number]/18/2021 01:17[facility] Chang, MUMTAZ - MWN (JARODN) - MWN JORDYN VASQUEZCiroDate of Service 04/01/2021 01:17HPI/Events of Note HPI: 50 yo M with PMHx of gout and HTN presents to ER with CC of dyspnea and cough. Cough beg an about a week ago and worsened the previous night. Pt also states he was febrile by the time he yajaira ched ER. Workup in ER showed pt was positive for SARS-CoV-2. CTA chest was negative for PE, but showe d extensive interstitial ground-glass and airspace opacities throughout both lungs. Pt's spo2 was 80% on arrival to ER, which improved to 94% after pt was placed on 5L O2 via NC. He was later placed on high flow NC, which may be why he was admitted to ICU. On my exam, pt was sleeping comfortably on CPA P. Bedside MD has started 10 day course of dexamethasone and 5 day course of remdesivir. Pt has mild HUI.OBJECTIVE:VS: 110/50, 70, 24, 97% (HFNC 10L, 75%), 35.9CGen: Morbidly obese, NADHeart: NSR with n ormal HR seen on telemetry monitorLungs: Breathing comfortably on CPAP at present, symmetric chest ri se, adequate [id number]: Sleeping comfortably on CPAP, NADASSESSMENT: Acute hypoxic respiratory failur eMultifocal community acquired pneumonia d/t [id number] sepsis without septic shock (per SIRS c riteria)AKIHyponatremiaHTNGoutPLAN:O2 via HFNC, CPAP QHS, wean as toleratedMaintain spo2 >90% and clemente 2 >60 mmHgDroplet and isolation precautions per facility protocolDexamethasone 6 mg PO qD x 10 daysRe mdesivir x 5 day courseLevaquin 750 qD per bedside MDMonitor BUN, Cr, UOPAvoid nephrotoxic agentsMoni tor BUN, Cr, UOPMonitor lytes, correct as appropriateHome metoprolol has been resumed by bedside MD. Lisinopril held d/t HUI. Monitor BP closely and adjust Rx as appropriate.Bedside team to reconcile ho me allopurinol at their discretionInterventions Major-Hypoxemia - evaluation and management, Infectio n - evaluation and management, Sepsis - evaluation and managementIntermediate-Respiratory distress - evaluation and managementMinor-Electrolyte abnormality - evaluation and managementElectronically Sign ed by: Sunni Ledesma) on 04/01/2021 01:31
[2021-04-01 06:45] LABS: BLOOD UREA NITROGEN,BUN 23 mg/dL (7.0-18.0); CARBON DIOXIDE,CO2 27.5 mmol/L (21.0-32.0); CHLORIDE,CL 99 mmol/L (98-107); GLUCOSE RANDOM 124 mg/dL (74-106); POTASSIUM,K 4.4 mmol/L (3.5-5.1); SODIUM,NA 135 mmol/L (136-148)
[2021-04-01] MEDS: Metoprolol Succinate 50 MG Tab.ER PO SCH (08:16)
[2021-04-01] MEDS ORDERED: Allopurinol 100 MG Tab PO SCH (09:00)
[2021-04-01] MEDS ORDERED: Sodium Chloride 0.65% Nasal Spray 45 ML Bottle NAS PRN (09:09)
--- NOTE | 2021-04-01 09:34 | PCM.PN ---
- General Info Date of Service: 04/01/21 Subjective Update: Patient states feeling better this morning. Still states cough with mild shortness of breath at times. Denies fever, chills. States no longer heavy sweating as he was yesterday evening. - Review of Systems General: Denies: Fever, Chills Pulmonary: Reports: Shortness of Breath, Cough Cardiovascular: Denies: Chest Pain Gastrointestinal: Denies: Abdominal Pain, Nausea, Vomiting Neurological: Denies: Confusion, Dizziness, Headache - Patient Data Vitals - Most Recent: Last Vital Signs Temp 98.2 F 04/01/21 08:00 Pulse 65 04/01/21 08:16 Resp 25 H 04/01/21 09:00 BP 121/61 04/01/21 09:00 Pulse Ox 93 L 04/01/21 09:00 Weight - Most Recent: 333 lb 1.6 oz I&O - Last 24 Hours: Intake & Output 03/31/21 04/01/21 04/01/21 22:59 06:59 14:59 Intake Total 1870 900 Output Total 200 Balance 1870 700 Lab Results Last 24 Hours: Laboratory Results - last 24 hr 03/31/21 03/31/21 03/31/21 Range/Units 07:56 07:56 07:57 WBC (4.0-11.0) K/uL RBC (4.50-5.90) M/uL Hgb (13.0-17.0) g/dL Hct (38.0-50.0) % MCV (80.0-98.0) fL MCH (27.0-32.0) pg MCHC (31.0-37.0) g/dL RDW Std Deviation (28.0-62.0) fl RDW Coeff of Ella (11.0-15.0) % Plt Count (150-400) K/uL MPV (7.40-12.00) fL Neut % (Auto) (48.0-80.0) % Lymph % (Auto) (16.0-40.0) % [place] % (Auto) (0.0-15.0) % Eos % (Auto) (0.0-7.0) % Baso % (Auto) (0.0-1.5) % Neut # (Auto) (1.4-5.7) K/uL Lymph # (Auto) (0.6-2.4) K/uL [place] # (Auto) (0.0-0.8) K/uL Eos # (Auto) (0.0-0.7) K/uL Baso # (Auto) (0.0-0.1) K/uL Nucleated RBC % /100WBC Nucleated RBCs # K/uL Sodium (136-148) mmol/L Potassium (3.5-5.1) mmol/L Chloride (98-107) mmol/L Carbon Dioxide (21.0-32.0) mmol/L BUN (7.0-18.0) mg/dL Creatinine (0.8-1.3) mg/dL Est Cr Clr Drug Dosing mL/min Estimated GFR (MDRD) ml/min Glucose (74-106) mg/dL POC Glucose (70-99) mg/dL Hemoglobin A1c 5.6 (4.5 - 6.2) % Calcium (8.5-10.1) mg/dL Total Bilirubin (0.2-1.0) mg/dL Direct Bilirubin 0.10 (0.0-0.5) mg/dL AST (15-37) IU/L ALT (14-63) IU/L Alkaline Phosphatase (46-116) U/L Total Protein (6.4-8.2) g/dL Albumin (3.4-5.0) g/dL Globulin (2.6-4.0) g/dL Albumin/Globulin Ratio (0.9-1.6) TSH, Ultra Sensitive 0.89 (0.36-3.74) uIU/mL 03/31/21 04/01/21 04/01/21 Range/Units 19:41 05:40 05:40 WBC 11.74 H (4.0-11.0) K/uL RBC 4.67 (4.50-5.90) M/uL Hgb 14.1 (13.0-17.0) g/dL Hct 41.5 (38.0-50.0) % MCV 88.9 (80.0-98.0) fL MCH 30.2 (27.0-32.0) pg MCHC 34.0 (31.0-37.0) g/dL RDW Std Deviation 45.3 (28.0-62.0) fl RDW Coeff of Ella 14 (11.0-15.0) % Plt Count 218 (150-400) K/uL MPV 10.50 (7.40-12.00) fL Neut % (Auto) 79.5 (48.0-80.0) % Lymph % (Auto) 8.7 L (16.0-40.0) % [place] % (Auto) 11.7 (0.0-15.0) % Eos % (Auto) 0.0 (0.0-7.0) % Baso % (Auto) 0.1 (0.0-1.5) % Neut # (Auto) 9.3 H (1.4-5.7) K/uL Lymph # (Auto) 1.0 (0.6-2.4) K/uL [place] # (Auto) 1.4 H (0.0-0.8) K/uL Eos # (Auto) 0.0 (0.0-0.7) K/uL Baso # (Auto) 0.0 (0.0-0.1) K/uL Nucleated RBC % 0.0 /100WBC Nucleated RBCs # 0 K/uL Sodium 135 L (136-148) mmol/L Potassium 4.4 (3.5-5.1) mmol/L Chloride 99 (98-107) mmol/L Carbon Dioxide 27.5 (21.0-32.0) mmol/L BUN 23 H (7.0-18.0) mg/dL Creatinine 1.2 (0.8-1.3) mg/dL Est Cr Clr Drug Dosing 77.57 mL/min Estimated GFR (MDRD) > 60.0 ml/min Glucose 124 H (74-106) mg/dL POC Glucose 147 H (70-99) mg/dL Hemoglobin A1c (4.5 - 6.2) % Calcium 8.5 (8.5-10.1) mg/dL Total Bilirubin 0.5 (0.2-1.0) mg/dL Direct Bilirubin (0.0-0.5) mg/dL AST 62 H (15-37) IU/L ALT 71 H (14-63) IU/L Alkaline Phosphatase 80 (46-116) U/L Total Protein 6.7 (6.4-8.2) g/dL Albumin 2.7 L (3.4-5.0) g/dL Globulin 4.0 (2.6-4.0) g/dL Albumin/Globulin Ratio 0.7 L (0.9-1.6) TSH, Ultra Sensitive (0.36-3.74) uIU/mL Jose Rafael Results Last 24 Hours: Microbiology 03/31/21 08:10 Aerobic Blood Culture - Preliminary Blood - Venous - Lab Draw NO GROWTH AFTER 1 DAY Anaerobic Blood Culture - Final 03/31/21 08:05 Aerobic Blood Culture - Preliminary Blood - Venous NO GROWTH AFTER 1 DAY Anaerobic Blood Culture - Preliminary NO GROWTH AFTER 1 DAY Med Orders - Current: Current Medications Acetaminophen (Acetaminophen 325 Mg Tab) 650 mg PO Q4H PRN PRN Reason: Pain (Mild 1-3)/fever Albuterol/Ipratropium (Albuterol/Ipratropium 3.0-0.5 Mg/3 Ml Neb Soln) 3 ml NEB Q4HRRT [facility] Last Admin: 04/01/21 06:22 Dose: 3 ml Documented by: Albuterol/Ipratropium (Albuterol/Ipratropium 4 Gm Inhalation [place]) 0 gm INH QID PRN PRN Reason: Shortness of Breath Benzonatate (Benzonatate 100 Mg Cap) 200 mg PO Q8H PRN PRN Reason: Cough Dexamethasone (Dexamethasone 4 Mg Tab) 6 mg PO Q24H [facility] Enoxaparin Sodium (Enoxaparin 40 Mg/0.4 Ml Syringe) 40 mg SUBCUT Q24H [facility] Last Admin: 03/31/21 12:56 Dose: 40 mg Documented by: Remdesivir 100 mg/ Sodium (Chloride) 100 mls @ 100 mls/hr IV Q24H [facility] Stop: 04/04/21 10:59 Levofloxacin (Levofloxacin 750 Mg Tab) 750 mg PO Q24H [facility] Last Admin: 03/31/21 12:56 Dose: 750 mg Documented by: Metoprolol Succinate (Metoprolol Succinate 50 Mg Tab.Er) 50 mg PO DAILY [facility] Last Admin: 04/01/21 08:16 Dose: 50 mg Documented by: Sodium Chloride (Sodium Chloride 0.9% 10 Ml Syringe) 10 ml FLUSH ASDIRECTED PRN PRN Reason: Keep Vein Open Last Admin: 03/31/21 08:00 Dose: 10 ml Documented by: Sodium Chloride (Sodium Chloride 0.9% 2.5 Ml Syringe) 2.5 ml FLUSH ASDIRECTED PRN PRN Reason: Keep Vein Open Last Admin: 03/31/21 08:00 Dose: 2.5 ml Documented by: Sodium Chloride (Sodium Chloride 0.65% Nasal [place] 45 Ml Bottle) 0 ml OSWALD Q2H PRN PRN Reason: Nasal Dryness Discontinued Medications Albuterol/Ipratropium (Albuterol/Ipratropium 3.0-0.5 Mg/3 Ml Neb Soln) 3 ml NEB Q4HRRT PRN PRN Reason: Shortness of Breath Albuterol/Ipratropium (Albuterol/Ipratropium 4 Gm Inhalation [place]) 2 gm INH QID [facility] Last Admin: 03/31/21 18:00 Dose: 2 puff Documented by: Allopurinol (Allopurinol 100 Mg Tab) 100 mg PO DAILY [facility] Aspirin (Aspirin 81 Mg Tab.Chew) 324 mg PO ONETIME ONE Stop: 03/31/21 07:44 Last Admin: 03/31/21 08:01 Dose: 324 mg Documented by: Dexamethasone (Dexamethasone 4 Mg Tab) 6 mg PO DAILY [facility] Stop: 03/31/21 10:34 Last Admin: 03/31/21 11:34 Dose: 6 mg Documented by: Remdesivir 200 mg/ Sodium (Chloride) 250 mls @ 250 mls/hr IV ONETIME ONE Stop: 03/31/21 11:36 Last Admin: 03/31/21 11:33 Dose: 250 mls/hr Documented by: Lactated Ringer's (Ringers, Lactated) 500 mls @ 999 mls/hr IV .BOLUS ONE Stop: 03/31/21 19:28 Last Admin: 03/31/21 19:53 Dose: 999 mls/hr Documented by: Iopamidol (Iopamidol 755 Mg/Ml 500 Ml Multipack Bottle) 100 ml IVPUSH ONETIME [facility] Stop: 03/31/21 15:26 Last Admin: 03/31/21 15:25 Dose: 100 ml Documented by: Ketorolac Tromethamine (Ketorolac 15 Mg/Ml Sdv) 15 mg IVPUSH ONETIME ONE Stop: 03/31/21 07:58 Last Admin: 03/31/21 08:01 Dose: 15 mg Documented by: - Exam Quality Assessment: Supplemental Oxygen (cpap) General: Alert, Oriented Lungs: Clear to Auscultation, Normal Respiratory Effort (on cpap) Cardiovascular: Regular Rate, Regular Rhythm GI/Abdominal Exam: Soft, Non-Tender Extremities: No Pedal Edema Psy/Mental Status: Alert - Patient Data Lab Results Last 24 hrs: Laboratory Results - last 24 hr 03/31/21 03/31/21 03/31/21 Range/Units 07:56 07:56 07:57 WBC (4.0-11.0) K/uL RBC (4.50-5.90) M/uL Hgb (13.0-17.0) g/dL Hct (38.0-50.0) % MCV (80.0-98.0) fL MCH (27.0-32.0) pg MCHC (31.0-37.0) g/dL RDW Std Deviation (28.0-62.0) fl RDW Coeff of Ella (11.0-15.0) % Plt Count (150-400) K/uL MPV (7.40-12.00) fL Neut % (Auto) (48.0-80.0) % Lymph % (Auto) (16.0-40.0) % [place] % (Auto) (0.0-15.0) % Eos % (Auto) (0.0-7.0) % Baso % (Auto) (0.0-1.5) % Neut # (Auto) (1.4-5.7) K/uL Lymph # (Auto) (0.6-2.4) K/uL [place] # (Auto) (0.0-0.8) K/uL Eos # (Auto) (0.0-0.7) K/uL Baso # (Auto) (0.0-0.1) K/uL Nucleated RBC % /100WBC Nucleated RBCs # K/uL Sodium (136-148) mmol/L Potassium (3.5-5.1) mmol/L Chloride (98-107) mmol/L Carbon Dioxide (21.0-32.0) mmol/L BUN (7.0-18.0) mg/dL Creatinine (0.8-1.3) mg/dL Est Cr Clr Drug Dosing mL/min Estimated GFR (MDRD) ml/min Glucose (74-106) mg/dL POC Glucose (70-99) mg/dL Hemoglobin A1c 5.6 (4.5 - 6.2) % Calcium (8.5-10.1) mg/dL Total Bilirubin (0.2-1.0) mg/dL Direct Bilirubin 0.10 (0.0-0.5) mg/dL AST (15-37) IU/L ALT (14-63) IU/L Alkaline Phosphatase (46-116) U/L Total Protein (6.4-8.2) g/dL Albumin (3.4-5.0) g/dL Globulin (2.6-4.0) g/dL Albumin/Globulin Ratio (0.9-1.6) TSH, Ultra Sensitive 0.89 (0.36-3.74) uIU/mL 03/31/21 04/01/21 04/01/21 Range/Units 19:41 05:40 05:40 WBC 11.74 H (4.0-11.0) K/uL RBC 4.67 (4.50-5.90) M/uL Hgb 14.1 (13.0-17.0) g/dL Hct 41.5 (38.0-50.0) % MCV 88.9 (80.0-98.0) fL MCH 30.2 (27.0-32.0) pg MCHC 34.0 (31.0-37.0) g/dL RDW Std Deviation 45.3 (28.0-62.0) fl RDW Coeff of Ella 14 (11.0-15.0) % Plt Count 218 (150-400) K/uL MPV 10.50 (7.40-12.00) fL Neut % (Auto) 79.5 (48.0-80.0) % Lymph % (Auto) 8.7 L (16.0-40.0) % [place] % (Auto) 11.7 (0.0-15.0) % Eos % (Auto) 0.0 (0.0-7.0) % Baso % (Auto) 0.1 (0.0-1.5) % Neut # (Auto) 9.3 H (1.4-5.7) K/uL Lymph # (Auto) 1.0 (0.6-2.4) K/uL [place] # (Auto) 1.4 H (0.0-0.8) K/uL Eos # (Auto) 0.0 (0.0-0.7) K/uL Baso # (Auto) 0.0 (0.0-0.1) K/uL Nucleated RBC % 0.0 /100WBC Nucleated RBCs # 0 K/uL Sodium 135 L (136-148) mmol/L Potassium 4.4 (3.5-5.1) mmol/L Chloride 99 (98-107) mmol/L Carbon Dioxide 27.5 (21.0-32.0) mmol/L BUN 23 H (7.0-18.0) mg/dL Creatinine 1.2 (0.8-1.3) mg/dL Est Cr Clr Drug Dosing 77.57 mL/min Estimated GFR (MDRD) > 60.0 ml/min Glucose 124 H (74-106) mg/dL POC Glucose 147 H (70-99) mg/dL Hemoglobin A1c (4.5 - 6.2) % Calcium 8.5 (8.5-10.1) mg/dL Total Bilirubin 0.5 (0.2-1.0) mg/dL Direct Bilirubin (0.0-0.5) mg/dL AST 62 H (15-37) IU/L ALT 71 H (14-63) IU/L Alkaline Phosphatase 80 (46-116) U/L Total Protein 6.7 (6.4-8.2) g/dL Albumin 2.7 L (3.4-5.0) g/dL Globulin 4.0 (2.6-4.0) g/dL Albumin/Globulin Ratio 0.7 L (0.9-1.6) TSH, Ultra Sensitive (0.36-3.74) uIU/mL Result Diagrams: 04/01/21 05:40 04/01/21 05:40 Jose Rafael Results Last 24 hrs: Microbiology 03/31/21 08:10 Aerobic Blood Culture - Preliminary Blood - Venous - Lab Draw NO GROWTH AFTER 1 DAY Anaerobic Blood Culture - Final 03/31/21 08:05 Aerobic Blood Culture - Preliminary Blood - Venous NO GROWTH AFTER 1 DAY Anaerobic Blood Culture - Preliminary NO GROWTH AFTER 1 DAY Sepsis Event Note - Evaluation Sepsis Screening Result: No Definite Risk - Focused Exam Vital Signs: Vital Signs Temp Pulse Resp BP BP BP Pulse Ox 04/01/21 09:00 25 H 121/61 93 L 04/01/21 08:16 65 127/65 04/01/21 08:00 98.2 F 26 H 127/65 96 04/01/21 07:00 24 H 123/60 92 L 04/01/21 06:00 98.3 F 24 H 110/65 89 L 04/01/21 05:00 17 107/56 L 95 04/01/21 04:00 14 112/53 L 99 04/01/21 03:00 20 118/61 95 04/01/21 02:00 20 104/36 L 88 L 04/01/21 01:34 97.3 F 24 H 110/53 L 97 04/01/21 00:00 24 H 110/50 L 97 03/31/21 23:00 96.7 F L 19 125/54 L 92 L - Problem List & Annotations (1) COVID-19 SNOMED Code(s): 228519027 Code(s): U07.1 - COVID-19 Status: Acute Current Visit: Yes (2) HTN (hypertension) SNOMED Code(s): 53657427 Code(s): I10 - ESSENTIAL (PRIMARY) HYPERTENSION Status: Acute Current Visit: Yes (3) Gout SNOMED Code(s): 68807304 Code(s): M10.9 - GOUT, UNSPECIFIED Status: Acute Current Visit: Yes - Problem List Review Problem List Initiated/Reviewed/Updated: Yes - My Orders Last 24 Hours: My Active Orders 03/31/21 Lunch Regular Diet [DIET] 03/31/21 11:32 Telemetry Monitoring [Cardiac Monitoring] [RC] . DIRECTED 03/31/21 11:33 Communication Order [RC] DAILY Incentive Spirometry [RT Incentive Spirometry] [RC] Q2HWA 03/31/21 11:35 RT Aerosol Therapy [RC] ASDIRECTED 03/31/21 11:47 RT Post Treatment Assessment [RC] Click to Edit RT Pre-Treatment Assessment [RC] Click to Edit 03/31/21 11:57 Oxygen Therapy [RC] PRN VTE/DVT Education [RC] PER UNIT ROUTINE Vital Signs [RC] Q1HR Acetaminophen [TylenoL] 650 mg PO Q4H PRN Resuscitation Status Routine 03/31/21 12:00 Enoxaparin [Lovenox] 40 mg SUBCUT Q24H levoFLOXacin [Levaquin] 750 mg PO Q24H 03/31/21 18:57 Benzonatate [Tessalon Perles] 200 mg PO Q8H PRN 04/01/21 09:00 Metoprolol Succinate [Toprol XL] 50 mg PO DAILY 04/01/21 09:09 Sodium Chloride 0.65% [[place] Nasal [place]] 0 ml OSWALD Q2H PRN 04/01/21 10:00 Remdesivir 100 mg Sodium Chloride 0.9% [Normal Saline] 100 ml IV Q24H dexAMETHasone 6 mg PO Q24H 04/02/21 05:11 CBC WITH AUTO DIFF [HEME] AM CMP [COMPREHENSIVE METABOLIC PN,CMP] [CHEM] AM 04/03/21 05:11 CBC WITH AUTO DIFF [HEME] AM CMP [COMPREHENSIVE METABOLIC PN,CMP] [CHEM] AM - Plan Plan:: Covid [place]- Remdesivir (200mg X 1, day 2-5 100mg X 4) Dexamethasone 6 mg p.o. X 10 days Levaquin 750mg Q24 Prone positioning, Oxygen support-maintain 02 saturations above 92% (Currently on CPAP FLOW 10, FIO2 65%), incentive spirometry, Combivent, Lovenox 40mg, Tylenol fever/pain, Telemetry Patient transferred to ICU overnight due to low O2 saturations of 88-90% while on patient's home CPAP. Will remain in ICU today.
[2021-04-01] MEDS: Dexamethasone 4 MG Tab PO SCH (10:26)
[2021-04-01] MEDS: REMDESIVIR 100 MG in Sodium Chloride 0.9% 100 ML IV SCH (10:27)
[2021-04-01] MEDS: Levofloxacin 750 MG Tab PO SCH (11:33)
[2021-04-01] MEDS: Enoxaparin 40 MG/0.4 ML Syringe SUBCUT SCH (11:33)
[2021-04-01] MEDS ORDERED: Codeine/guaiFENesin 10-100 MG/5 ML Syrup 5 ML Cup PO PRN (19:05)
[2021-04-01] MEDS: Allopurinol 100 MG Tab PO SCH (20:37)
[2021-04-01] MEDS ORDERED: LORazepam 2 MG/ML SDV IVPUSH ONE (21:00)
[2021-04-01] MEDS ORDERED: LORazepam 2 MG/ML SDV IVPUSH PRN (21:00)
[2021-04-01] MEDS: Acetaminophen 325 MG Tab PO PRN (21:05)
[2021-04-02] MEDS: Albuterol/Ipratropium 3.0-0.5 MG/3 ML Neb Soln NEB SCH ×6 (01:30→21:13)
[2021-04-02 06:14] LABS: BLOOD UREA NITROGEN,BUN 27 mg/dL (7.0-18.0); CARBON DIOXIDE,CO2 30.2 mmol/L (21.0-32.0); CHLORIDE,CL 100 mmol/L (98-107); GLUCOSE RANDOM 116 mg/dL (74-106); POTASSIUM,K 4.4 mmol/L (3.5-5.1); SODIUM,NA 137 mmol/L (136-148)
[2021-04-02] MEDS: Metoprolol Succinate 50 MG Tab.ER PO SCH (08:18)
[2021-04-02] MEDS: Cholecalciferol (Vitamin D3) 25 MCG Tab PO SCH (08:19)
[2021-04-02] MEDS: Dexamethasone 4 MG Tab PO SCH (09:34)
[2021-04-02] MEDS ORDERED: Lactated Ringers 500 ML IV ONE (10:10)
[2021-04-02] MEDS: REMDESIVIR 100 MG in Sodium Chloride 0.9% 100 ML IV SCH (10:54)
[2021-04-02] MEDS: Levofloxacin 750 MG Tab PO SCH (12:07)
[2021-04-02] MEDS: Enoxaparin 40 MG/0.4 ML Syringe SUBCUT SCH (12:07)
[2021-04-02] MEDS: LORazepam 2 MG/ML SDV IVPUSH PRN ×2 (12:45→21:10)
[2021-04-02] MEDS: Allopurinol 100 MG Tab PO SCH (21:10)
--- NOTE | 2021-04-02 22:06 | PCM.PN ---
- General Info Date of Service: 04/02/21 Subjective Update: Patient states mild cough, shortness of breath when attempting to ambulate or sitting up in the chair. Patient states he feels comfortable when laying down on the bed. Patient denies fever, chills, nausea, vomiting. Patient states decreased appetite. - Review of Systems General: Denies: Fever, Chills Pulmonary: Denies: Shortness of Breath Cardiovascular: Denies: Palpitations Gastrointestinal: Reports: Decreased Appetite. Denies: Abdominal Pain, Nausea, Vomiting Neurological: Denies: Confusion, Dizziness Psychiatric: Denies: Confusion - Patient Data Vitals - Most Recent: Last Vital Signs Temp 97.9 F 04/02/21 21:00 Pulse 67 04/02/21 08:18 Resp 29 H 04/02/21 21:00 BP 139/70 04/02/21 21:00 Pulse Ox 97 04/02/21 21:00 Weight - Most Recent: 329 lb 12.984 oz I&O - Last 24 Hours: Intake & Output 04/02/21 04/02/21 04/02/21 06:59 14:59 22:59 Intake Total 500 500 Output Total 700 860 Balance -200 -360 Lab Results Last 24 Hours: Laboratory Results - last 24 hr 04/02/21 04/02/21 04/02/21 Range/Units 05:15 05:15 05:15 WBC 14.04 H (4.0-11.0) K/uL RBC 4.68 (4.50-5.90) M/uL Hgb 14.1 (13.0-17.0) g/dL Hct 41.7 (38.0-50.0) % MCV 89.1 (80.0-98.0) fL MCH 30.1 (27.0-32.0) pg MCHC 33.8 (31.0-37.0) g/dL RDW Std Deviation 45.1 (28.0-62.0) fl RDW Coeff of Ella 14 (11.0-15.0) % Plt Count 239 (150-400) K/uL MPV 10.30 (7.40-12.00) fL Neut % (Auto) 82.5 H (48.0-80.0) % Lymph % (Auto) 9.3 L (16.0-40.0) % [place] % (Auto) 8.0 (0.0-15.0) % Eos % (Auto) 0.1 (0.0-7.0) % Baso % (Auto) 0.1 (0.0-1.5) % Neut # (Auto) 11.6 H (1.4-5.7) K/uL Lymph # (Auto) 1.3 (0.6-2.4) K/uL [place] # (Auto) 1.1 H (0.0-0.8) K/uL Eos # (Auto) 0.0 (0.0-0.7) K/uL Baso # (Auto) 0.0 (0.0-0.1) K/uL Nucleated RBC % 0.0 /100WBC Nucleated RBCs # 0 K/uL Sodium 137 (136-148) mmol/L Potassium 4.4 (3.5-5.1) mmol/L Chloride 100 (98-107) mmol/L Carbon Dioxide 30.2 (21.0-32.0) mmol/L BUN 27 H (7.0-18.0) mg/dL Creatinine 1.2 (0.8-1.3) mg/dL Est Cr Clr Drug Dosing 77.57 mL/min Estimated GFR (MDRD) > 60.0 ml/min Glucose 116 H (74-106) mg/dL Calcium 9.1 (8.5-10.1) mg/dL Total Bilirubin 0.5 (0.2-1.0) mg/dL AST 51 H (15-37) IU/L ALT 67 H (14-63) IU/L Alkaline Phosphatase 73 (46-116) U/L C-Reactive Protein 24.30 H (0.00-0.90) mg/dL Total Protein 7.0 (6.4-8.2) g/dL Albumin 2.4 L (3.4-5.0) g/dL Globulin 4.6 H (2.6-4.0) g/dL Albumin/Globulin Ratio 0.5 L (0.9-1.6) Jose Rafael Results Last 24 Hours: Microbiology 03/31/21 08:10 Aerobic Blood Culture - Preliminary Blood - Venous - Lab Draw NO GROWTH AFTER 2 DAYS Anaerobic Blood Culture - Final 03/31/21 08:05 Aerobic Blood Culture - Preliminary Blood - Venous NO GROWTH AFTER 2 DAYS Anaerobic Blood Culture - Preliminary NO GROWTH AFTER 2 DAYS Med Orders - Current: Current Medications Acetaminophen (Acetaminophen 325 Mg Tab) 650 mg PO Q4H PRN PRN Reason: Pain (Mild 1-3)/fever Last Admin: 04/01/21 21:05 Dose: 650 mg Documented by: Albuterol/Ipratropium (Albuterol/Ipratropium 3.0-0.5 Mg/3 Ml Neb Soln) 3 ml NEB Q4HRRT [facility] Last Admin: 04/02/21 21:13 Dose: 3 ml Documented by: Albuterol/Ipratropium (Albuterol/Ipratropium 4 Gm Inhalation [place]) 0 gm INH QID PRN PRN Reason: Shortness of Breath Last Admin: 04/01/21 14:20 Dose: 2 puff Documented by: Allopurinol (Allopurinol 100 Mg Tab) 100 mg PO BEDTIME [facility] Last Admin: 04/02/21 21:10 Dose: 100 mg Documented by: Cholecalciferol (Cholecalciferol (Vitamin D3) 25 Mcg Tab) 50 mcg PO DAILY [facility] Last Admin: 04/02/21 08:19 Dose: 50 mcg Documented by: Dexamethasone (Dexamethasone 4 Mg Tab) 6 mg PO Q24H [facility] Last Admin: 04/02/21 09:34 Dose: 6 mg Documented by: Enoxaparin Sodium (Enoxaparin 40 Mg/0.4 Ml Syringe) 40 mg SUBCUT Q24H [facility] Last Admin: 04/02/21 12:07 Dose: 40 mg Documented by: Guaifenesin/Codeine Phosphate (Codeine/Guaifenesin 10-100 Mg/5 Ml Syrup 5 Ml Cup) 5 ml PO Q6H PRN PRN Reason: Cough Last Admin: 04/02/21 08:18 Dose: 5 ml Documented by: Remdesivir 100 mg/ Sodium (Chloride) 100 mls @ 100 mls/hr IV Q24H [facility] Stop: 04/04/21 10:59 Last Admin: 04/02/21 10:54 Dose: 100 mls/hr Documented by: Levofloxacin (Levofloxacin 750 Mg Tab) 750 mg PO Q24H [facility] Last Admin: 04/02/21 12:07 Dose: 750 mg Documented by: Lorazepam (Lorazepam 2 Mg/Ml Sdv) 1 mg IVPUSH Q6H PRN PRN Reason: Anxiety Last Admin: 04/02/21 21:10 Dose: 1 mg Documented by: Metoprolol Succinate (Metoprolol Succinate 50 Mg Tab.Er) 50 mg PO DAILY [facility] Last Admin: 04/02/21 08:18 Dose: 50 mg Documented by: Sodium Chloride (Sodium Chloride 0.9% 10 Ml Syringe) 10 ml FLUSH ASDIRECTED PRN PRN Reason: Keep Vein Open Last Admin: 03/31/21 08:00 Dose: 10 ml Documented by: Sodium Chloride (Sodium Chloride 0.9% 2.5 Ml Syringe) 2.5 ml FLUSH ASDIRECTED PRN PRN Reason: Keep Vein Open Last Admin: 03/31/21 08:00 Dose: 2.5 ml Documented by: Sodium Chloride (Sodium Chloride 0.65% Nasal [place] 45 Ml Bottle) 0 ml OSWALD Q2H PRN PRN Reason: Nasal Dryness Last Admin: 04/01/21 11:33 Dose: 1 spray Documented by: Discontinued Medications Albuterol/Ipratropium (Albuterol/Ipratropium 3.0-0.5 Mg/3 Ml Neb Soln) 3 ml NEB Q4HRRT PRN PRN Reason: Shortness of Breath Albuterol/Ipratropium (Albuterol/Ipratropium 4 Gm Inhalation [place]) 2 gm INH QID [facility] Last Admin: 03/31/21 18:00 Dose: 2 puff Documented by: Allopurinol (Allopurinol 100 Mg Tab) 100 mg PO DAILY [facility] Aspirin (Aspirin 81 Mg Tab.Chew) 324 mg PO ONETIME ONE Stop: 03/31/21 07:44 Last Admin: 03/31/21 08:01 Dose: 324 mg Documented by: Benzonatate (Benzonatate 100 Mg Cap) 200 mg PO Q8H PRN PRN Reason: Cough Last Admin: 04/01/21 11:33 Dose: 200 mg Documented by: Dexamethasone (Dexamethasone 4 Mg Tab) 6 mg PO DAILY [facility] Stop: 03/31/21 10:34 Last Admin: 03/31/21 11:34 Dose: 6 mg Documented by: Remdesivir 200 mg/ Sodium (Chloride) 250 mls @ 250 mls/hr IV ONETIME ONE Stop: 03/31/21 11:36 Last Admin: 03/31/21 11:33 Dose: 250 mls/hr Documented by: Lactated Ringer's (Ringers, Lactated) 500 mls @ 999 mls/hr IV .BOLUS ONE Stop: 03/31/21 19:28 Last Admin: 03/31/21 19:53 Dose: 999 mls/hr Documented by: Lactated Ringer's (Ringers, Lactated) 500 mls @ 250 mls/hr IV ONETIME ONE Stop: 04/02/21 12:09 Last Admin: 04/02/21 11:03 Dose: 250 mls/hr Documented by: Iopamidol (Iopamidol 755 Mg/Ml 500 Ml Multipack Bottle) 100 ml IVPUSH ONETIME [facility] Stop: 03/31/21 15:26 Last Admin: 03/31/21 15:25 Dose: 100 ml Documented by: Ketorolac Tromethamine (Ketorolac 15 Mg/Ml Sdv) 15 mg IVPUSH ONETIME ONE Stop: 03/31/21 07:58 Last Admin: 03/31/21 08:01 Dose: 15 mg Documented by: Lorazepam (Lorazepam 2 Mg/Ml Sdv) 1 mg IVPUSH ONETIME ONE Stop: 04/01/21 21:01 Lorazepam (Lorazepam 2 Mg/Ml Sdv) 1 mg IVPUSH ONETIME PRN PRN Reason: Anxiety Last Admin: 04/01/21 20:36 Dose: 1 mg Documented by: - Exam General: Alert, Oriented Lungs: Clear to Auscultation, Normal Respiratory Effort Cardiovascular: Regular Rate, Regular Rhythm GI/Abdominal Exam: Soft, Non-Tender Extremities: No Pedal Edema Psy/Mental Status: Alert - Patient Data Lab Results Last 24 hrs: Laboratory Results - last 24 hr 04/02/21 04/02/21 04/02/21 Range/Units 05:15 05:15 05:15 WBC 14.04 H (4.0-11.0) K/uL RBC 4.68 (4.50-5.90) M/uL Hgb 14.1 (13.0-17.0) g/dL Hct 41.7 (38.0-50.0) % MCV 89.1 (80.0-98.0) fL MCH 30.1 (27.0-32.0) pg MCHC 33.8 (31.0-37.0) g/dL RDW Std Deviation 45.1 (28.0-62.0) fl RDW Coeff of Ella 14 (11.0-15.0) % Plt Count 239 (150-400) K/uL MPV 10.30 (7.40-12.00) fL Neut % (Auto) 82.5 H (48.0-80.0) % Lymph % (Auto) 9.3 L (16.0-40.0) % [place] % (Auto) 8.0 (0.0-15.0) % Eos % (Auto) 0.1 (0.0-7.0) % Baso % (Auto) 0.1 (0.0-1.5) % Neut # (Auto) 11.6 H (1.4-5.7) K/uL Lymph # (Auto) 1.3 (0.6-2.4) K/uL [place] # (Auto) 1.1 H (0.0-0.8) K/uL Eos # (Auto) 0.0 (0.0-0.7) K/uL Baso # (Auto) 0.0 (0.0-0.1) K/uL Nucleated RBC % 0.0 /100WBC Nucleated RBCs # 0 K/uL Sodium 137 (136-148) mmol/L Potassium 4.4 (3.5-5.1) mmol/L Chloride 100 (98-107) mmol/L Carbon Dioxide 30.2 (21.0-32.0) mmol/L BUN 27 H (7.0-18.0) mg/dL Creatinine 1.2 (0.8-1.3) mg/dL Est Cr Clr Drug Dosing 77.57 mL/min Estimated GFR (MDRD) > 60.0 ml/min Glucose 116 H (74-106) mg/dL Calcium 9.1 (8.5-10.1) mg/dL Total Bilirubin 0.5 (0.2-1.0) mg/dL AST 51 H (15-37) IU/L ALT 67 H (14-63) IU/L Alkaline Phosphatase 73 (46-116) U/L C-Reactive Protein 24.30 H (0.00-0.90) mg/dL Total Protein 7.0 (6.4-8.2) g/dL Albumin 2.4 L (3.4-5.0) g/dL Globulin 4.6 H (2.6-4.0) g/dL Albumin/Globulin Ratio 0.5 L (0.9-1.6) Result Diagrams: 04/02/21 05:15 04/02/21 05:15 Jose Rafael Results Last 24 hrs: Microbiology 03/31/21 08:10 Aerobic Blood Culture - Preliminary Blood - Venous - Lab Draw NO GROWTH AFTER 2 DAYS Anaerobic Blood Culture - Final 03/31/21 08:05 Aerobic Blood Culture - Preliminary Blood - Venous NO GROWTH AFTER 2 DAYS Anaerobic Blood Culture - Preliminary NO GROWTH AFTER 2 DAYS Sepsis Event Note - Evaluation Sepsis Screening Result: Possible Sepsis Risk - Focused Exam Vital Signs: Vital Signs Temp Resp BP Pulse Ox 04/02/21 21:00 97.9 F 29 H 139/70 97 04/02/21 20:00 97.9 F 29 H 125/56 L 92 L 04/02/21 19:00 32 H 125/56 L 90 L 04/02/21 18:00 28 H 141/60 H 92 L 04/02/21 17:00 26 H 127/61 91 L 04/02/21 16:00 98.1 F 28 H 127/61 91 L 04/02/21 15:00 30 H 135/78 92 L 04/02/21 14:00 28 H 138/82 91 L 04/02/21 13:00 32 H 131/76 89 L 04/02/21 12:00 98.2 F 25 H 141/60 H 93 L 04/02/21 11:00 22 H 150/60 H 91 L - Problem List & Annotations (1) COVID-19 SNOMED Code(s): 436086266 Code(s): U07.1 - COVID-19 Status: Acute Current Visit: Yes (2) HTN (hypertension) SNOMED Code(s): 51991920 Code(s): I10 - ESSENTIAL (PRIMARY) HYPERTENSION Status: Acute Current Visit: Yes (3) Gout SNOMED Code(s): 18491369 Code(s): M10.9 - GOUT, UNSPECIFIED Status: Acute Current Visit: Yes - Problem List Review Problem List Initiated/Reviewed/Updated: Yes - My Orders Last 24 Hours: My Active Orders 04/02/21 09:00 Cholecalciferol (Vitamin D3) [Vitamin D3] 50 mcg PO DAILY 04/02/21 12:38 LORazepam [Ativan] 1 mg IVPUSH Q6H PRN 04/03/21 05:11 CBC WITH AUTO DIFF [HEME] AM CMP [COMPREHENSIVE METABOLIC PN,CMP] [CHEM] AM - Plan Plan:: Covid Pneunomia- Remdesivir (200mg X 1, day 2-5 100mg X 4) Dexamethasone 6 mg p.o. X 10 days Levaquin 750mg Q24 Prone positioning, Oxygen support-maintain 02 saturations above 92% (Currently on BiPap FLOW 16, FIO2 80-100%), incentive spirometry, Combivent, Lovenox 40mg, Tylenol fever/pain, Telemetry Patient will remain in the ICU today. Patient's oxygen requirement increased this afternoon and patient was started on BiPAP. We will attempt to wean patient off of BiPAP as tolerated.
[2021-04-03] MEDS: Albuterol/Ipratropium 3.0-0.5 MG/3 ML Neb Soln NEB SCH ×6 (01:39→22:02)
[2021-04-03] MEDS: LORazepam 2 MG/ML SDV IVPUSH PRN (04:10)
[2021-04-03 06:36] LABS: BLOOD UREA NITROGEN,BUN 23 mg/dL (7.0-18.0); CARBON DIOXIDE,CO2 29.2 mmol/L (21.0-32.0); CHLORIDE,CL 99 mmol/L (98-107); GLUCOSE RANDOM 106 mg/dL (74-106); POTASSIUM,K 4.2 mmol/L (3.5-5.1); SODIUM,NA 135 mmol/L (136-148)
[2021-04-03] MEDS: Dexamethasone 4 MG Tab PO SCH (09:17)
[2021-04-03] MEDS: Cholecalciferol (Vitamin D3) 25 MCG Tab PO SCH (09:18)
[2021-04-03] MEDS: Metoprolol Succinate 50 MG Tab.ER PO SCH (09:18)
[2021-04-03] MEDS: REMDESIVIR 100 MG in Sodium Chloride 0.9% 100 ML IV SCH (09:24)
--- NOTE | 2021-04-03 10:36 | PCM.PN ---
- General Info Date of Service: 04/03/21 Subjective Update: Patient states continued fatigue, anxious about his ongoing Covid infection. States decreased appetite. Denies chest pain, mild shortness of breath. - Review of Systems Pulmonary: Reports: Shortness of Breath (mild when sitting up), Cough Gastrointestinal: Reports: Decreased Appetite. Denies: Abdominal Pain, Nausea, Vomiting Skin: Denies: Cyanosis Neurological: Denies: Confusion, Dizziness - Patient Data Vitals - Most Recent: Last Vital Signs Temp 97.9 F 04/03/21 07:00 Pulse 76 04/03/21 09:18 Resp 22 H 04/03/21 09:00 BP 124/66 04/03/21 09:18 Pulse Ox 94 L 04/03/21 09:00 Weight - Most Recent: 329 lb 12.984 oz I&O - Last 24 Hours: Intake & Output 04/02/21 04/03/21 04/03/21 22:59 06:59 14:59 Intake Total 500 1000 Output Total 860 1400 Balance -360 -400 Lab Results Last 24 Hours: Laboratory Results - last 24 hr 04/02/21 04/03/21 04/03/21 Range/Units 05:15 05:36 05:36 WBC 12.05 H (4.0-11.0) K/uL RBC 4.41 L (4.50-5.90) M/uL Hgb 13.2 (13.0-17.0) g/dL Hct 38.9 (38.0-50.0) % MCV 88.2 (80.0-98.0) fL MCH 29.9 (27.0-32.0) pg MCHC 33.9 (31.0-37.0) g/dL RDW Std Deviation 44.0 (28.0-62.0) fl RDW Coeff of Ella 14 (11.0-15.0) % Plt Count 224 (150-400) K/uL MPV 10.10 (7.40-12.00) fL Neut % (Auto) 84.8 H (48.0-80.0) % Lymph % (Auto) 8.0 L (16.0-40.0) % Edgar % (Auto) 7.0 (0.0-15.0) % Eos % (Auto) 0.1 (0.0-7.0) % Baso % (Auto) 0.1 (0.0-1.5) % Neut # (Auto) 10.2 H (1.4-5.7) K/uL Lymph # (Auto) 1.0 (0.6-2.4) K/uL Edgar # (Auto) 0.8 (0.0-0.8) K/uL Eos # (Auto) 0.0 (0.0-0.7) K/uL Baso # (Auto) 0.0 (0.0-0.1) K/uL Nucleated RBC % 0.0 /100WBC Nucleated RBCs # 0 K/uL Sodium 135 L (136-148) mmol/L Potassium 4.2 (3.5-5.1) mmol/L Chloride 99 (98-107) mmol/L Carbon Dioxide 29.2 (21.0-32.0) mmol/L BUN 23 H (7.0-18.0) mg/dL Creatinine 1.1 (0.8-1.3) mg/dL Est Cr Clr Drug Dosing 84.62 mL/min Estimated GFR (MDRD) > 60.0 ml/min Glucose 106 (74-106) mg/dL Calcium 8.8 (8.5-10.1) mg/dL Total Bilirubin 0.8 (0.2-1.0) mg/dL AST 67 H (15-37) IU/L ALT 90 H (14-63) IU/L Alkaline Phosphatase 85 (46-116) U/L C-Reactive Protein 24.30 H (0.00-0.90) mg/dL Total Protein 6.7 (6.4-8.2) g/dL Albumin 2.2 L (3.4-5.0) g/dL Globulin 4.5 H (2.6-4.0) g/dL Albumin/Globulin Ratio 0.5 L (0.9-1.6) Jose Rafael Results Last 24 Hours: Microbiology 03/31/21 08:10 Aerobic Blood Culture - Preliminary Blood - Venous - Lab Draw NO GROWTH AFTER 3 DAYS Anaerobic Blood Culture - Final 03/31/21 08:05 Aerobic Blood Culture - Preliminary Blood - Venous NO GROWTH AFTER 3 DAYS Anaerobic Blood Culture - Preliminary NO GROWTH AFTER 3 DAYS Med Orders - Current: Current Medications Acetaminophen (Acetaminophen 325 Mg Tab) 650 mg PO Q4H PRN PRN Reason: Pain (Mild 1-3)/fever Last Admin: 04/01/21 21:05 Dose: 650 mg Documented by: Albuterol/Ipratropium (Albuterol/Ipratropium 3.0-0.5 Mg/3 Ml Neb Soln) 3 ml NEB Q4HRRT [facility] Last Admin: 04/03/21 10:01 Dose: 3 ml Documented by: Albuterol/Ipratropium (Albuterol/Ipratropium 4 Gm Inhalation [place]) 0 gm INH QID PRN PRN Reason: Shortness of Breath Last Admin: 04/01/21 14:20 Dose: 2 puff Documented by: Allopurinol (Allopurinol 100 Mg Tab) 100 mg PO BEDTIME [facility] Last Admin: 04/02/21 21:10 Dose: 100 mg Documented by: Cholecalciferol (Cholecalciferol (Vitamin D3) 25 Mcg Tab) 50 mcg PO DAILY [facility] Last Admin: 04/03/21 09:18 Dose: 50 mcg Documented by: Dexamethasone (Dexamethasone 4 Mg Tab) 6 mg PO Q24H [facility] Last Admin: 04/03/21 09:17 Dose: 6 mg Documented by: Enoxaparin Sodium (Enoxaparin 40 Mg/0.4 Ml Syringe) 40 mg SUBCUT Q24H [facility] Last Admin: 04/02/21 12:07 Dose: 40 mg Documented by: Guaifenesin/Codeine Phosphate (Codeine/Guaifenesin 10-100 Mg/5 Ml Syrup 5 Ml Cup) 5 ml PO Q6H PRN PRN Reason: Cough Last Admin: 04/02/21 08:18 Dose: 5 ml Documented by: Remdesivir 100 mg/ Sodium (Chloride) 100 mls @ 100 mls/hr IV Q24H [facility] Stop: 04/04/21 10:59 Last Admin: 04/03/21 09:24 Dose: 100 mls/hr Documented by: Levofloxacin (Levofloxacin 750 Mg Tab) 750 mg PO Q24H [facility] Last Admin: 04/02/21 12:07 Dose: 750 mg Documented by: Lorazepam (Lorazepam 2 Mg/Ml Sdv) 1 mg IVPUSH Q6H PRN PRN Reason: Anxiety Last Admin: 04/03/21 04:10 Dose: 1 mg Documented by: Metoprolol Succinate (Metoprolol Succinate 50 Mg Tab.Er) 50 mg PO DAILY [facility] Last Admin: 04/03/21 09:18 Dose: 50 mg Documented by: Sodium Chloride (Sodium Chloride 0.9% 10 Ml Syringe) 10 ml FLUSH ASDIRECTED PRN PRN Reason: Keep Vein Open Last Admin: 03/31/21 08:00 Dose: 10 ml Documented by: Sodium Chloride (Sodium Chloride 0.9% 2.5 Ml Syringe) 2.5 ml FLUSH ASDIRECTED PRN PRN Reason: Keep Vein Open Last Admin: 03/31/21 08:00 Dose: 2.5 ml Documented by: Sodium Chloride (Sodium Chloride 0.65% Nasal [place] 45 Ml Bottle) 0 ml OSWALD Q2H PRN PRN Reason: Nasal Dryness Last Admin: 04/01/21 11:33 Dose: 1 spray Documented by: Discontinued Medications Albuterol/Ipratropium (Albuterol/Ipratropium 3.0-0.5 Mg/3 Ml Neb Soln) 3 ml NEB Q4HRRT PRN PRN Reason: Shortness of Breath Albuterol/Ipratropium (Albuterol/Ipratropium 4 Gm Inhalation [place]) 2 gm INH QID [facility] Last Admin: 03/31/21 18:00 Dose: 2 puff Documented by: Allopurinol (Allopurinol 100 Mg Tab) 100 mg PO DAILY [facility] Aspirin (Aspirin 81 Mg Tab.Chew) 324 mg PO ONETIME ONE Stop: 03/31/21 07:44 Last Admin: 03/31/21 08:01 Dose: 324 mg Documented by: Benzonatate (Benzonatate 100 Mg Cap) 200 mg PO Q8H PRN PRN Reason: Cough Last Admin: 04/01/21 11:33 Dose: 200 mg Documented by: Dexamethasone (Dexamethasone 4 Mg Tab) 6 mg PO DAILY [facility] Stop: 03/31/21 10:34 Last Admin: 03/31/21 11:34 Dose: 6 mg Documented by: Remdesivir 200 mg/ Sodium (Chloride) 250 mls @ 250 mls/hr IV ONETIME ONE Stop: 03/31/21 11:36 Last Admin: 03/31/21 11:33 Dose: 250 mls/hr Documented by: Lactated Ringer's (Ringers, Lactated) 500 mls @ 999 mls/hr IV .BOLUS ONE Stop: 03/31/21 19:28 Last Admin: 03/31/21 19:53 Dose: 999 mls/hr Documented by: Lactated Ringer's (Ringers, Lactated) 500 mls @ 250 mls/hr IV ONETIME ONE Stop: 04/02/21 12:09 Last Admin: 04/02/21 11:03 Dose: 250 mls/hr Documented by: Iopamidol (Iopamidol 755 Mg/Ml 500 Ml Multipack Bottle) 100 ml IVPUSH ONETIME STA Stop: 03/31/21 15:26 Last Admin: 03/31/21 15:25 Dose: 100 ml Documented by: Ketorolac Tromethamine (Ketorolac 15 Mg/Ml Sdv) 15 mg IVPUSH ONETIME ONE Stop: 03/31/21 07:58 Last Admin: 03/31/21 08:01 Dose: 15 mg Documented by: Lorazepam (Lorazepam 2 Mg/Ml Sdv) 1 mg IVPUSH ONETIME ONE Stop: 04/01/21 21:01 Lorazepam (Lorazepam 2 Mg/Ml Sdv) 1 mg IVPUSH ONETIME PRN PRN Reason: Anxiety Last Admin: 04/01/21 20:36 Dose: 1 mg Documented by: - Exam General: Alert, Oriented Lungs: Clear to Auscultation, Normal Respiratory Effort (with bipap) Cardiovascular: Regular Rate, Regular Rhythm GI/Abdominal Exam: Soft, Non-Tender Extremities: No Pedal Edema - Patient Data Lab Results Last 24 hrs: Laboratory Results - last 24 hr 04/02/21 04/03/21 04/03/21 Range/Units 05:15 05:36 05:36 WBC 12.05 H (4.0-11.0) K/uL RBC 4.41 L (4.50-5.90) M/uL Hgb 13.2 (13.0-17.0) g/dL Hct 38.9 (38.0-50.0) % MCV 88.2 (80.0-98.0) fL MCH 29.9 (27.0-32.0) pg MCHC 33.9 (31.0-37.0) g/dL RDW Std Deviation 44.0 (28.0-62.0) fl RDW Coeff of Ella 14 (11.0-15.0) % Plt Count 224 (150-400) K/uL MPV 10.10 (7.40-12.00) fL Neut % (Auto) 84.8 H (48.0-80.0) % Lymph % (Auto) 8.0 L (16.0-40.0) % Edgar % (Auto) 7.0 (0.0-15.0) % Eos % (Auto) 0.1 (0.0-7.0) % Baso % (Auto) 0.1 (0.0-1.5) % Neut # (Auto) 10.2 H (1.4-5.7) K/uL Lymph # (Auto) 1.0 (0.6-2.4) K/uL Edgar # (Auto) 0.8 (0.0-0.8) K/uL Eos # (Auto) 0.0 (0.0-0.7) K/uL Baso # (Auto) 0.0 (0.0-0.1) K/uL Nucleated RBC % 0.0 /100WBC Nucleated RBCs # 0 K/uL Sodium 135 L (136-148) mmol/L Potassium 4.2 (3.5-5.1) mmol/L Chloride 99 (98-107) mmol/L Carbon Dioxide 29.2 (21.0-32.0) mmol/L BUN 23 H (7.0-18.0) mg/dL Creatinine 1.1 (0.8-1.3) mg/dL Est Cr Clr Drug Dosing 84.62 mL/min Estimated GFR (MDRD) > 60.0 ml/min Glucose 106 (74-106) mg/dL Calcium 8.8 (8.5-10.1) mg/dL Total Bilirubin 0.8 (0.2-1.0) mg/dL AST 67 H (15-37) IU/L ALT 90 H (14-63) IU/L Alkaline Phosphatase 85 (46-116) U/L C-Reactive Protein 24.30 H (0.00-0.90) mg/dL Total Protein 6.7 (6.4-8.2) g/dL Albumin 2.2 L (3.4-5.0) g/dL Globulin 4.5 H (2.6-4.0) g/dL Albumin/Globulin Ratio 0.5 L (0.9-1.6) Result Diagrams: 04/03/21 05:36 04/03/21 05:36 Jose Rafael Results Last 24 hrs: Microbiology 03/31/21 08:10 Aerobic Blood Culture - Preliminary Blood - Venous - Lab Draw NO GROWTH AFTER 3 DAYS Anaerobic Blood Culture - Final 03/31/21 08:05 Aerobic Blood Culture - Preliminary Blood - Venous NO GROWTH AFTER 3 DAYS Anaerobic Blood Culture - Preliminary NO GROWTH AFTER 3 DAYS Sepsis Event Note - Evaluation Sepsis Screening Result: Possible Sepsis Risk - Focused Exam Vital Signs: Vital Signs Temp Pulse Resp BP BP BP Pulse Ox 04/03/21 09:18 76 124/66 04/03/21 09:00 22 H 124/66 94 L 04/03/21 08:00 34 H 91 L 04/03/21 07:00 97.9 F 24 H 148/70 H 95 04/03/21 06:00 97.9 F 24 H 122/72 95 04/03/21 05:00 97.9 F 33 H 132/77 95 04/03/21 03:56 97.9 F 25 H 139/70 96 04/03/21 02:58 97.9 F 30 H 123/75 95 04/03/21 02:00 27 H 127/74 94 L 04/03/21 01:00 97.9 F 34 H 134/74 93 L 04/03/21 00:00 97.9 F 33 H 135/65 95 04/02/21 23:00 97.9 F 21 H 140/63 94 L - Problem List & Annotations (1) COVID-19 SNOMED Code(s): 075802178 Code(s): U07.1 - COVID-19 Status: Acute Current Visit: Yes (2) HTN (hypertension) SNOMED Code(s): 29031832 Code(s): I10 - ESSENTIAL (PRIMARY) HYPERTENSION Status: Acute Current Visit: Yes (3) Gout SNOMED Code(s): 23089827 Code(s): M10.9 - GOUT, UNSPECIFIED Status: Acute Current Visit: Yes - Problem List Review Problem List Initiated/Reviewed/Updated: Yes - My Orders Last 24 Hours: My Active Orders 04/02/21 12:38 LORazepam [Ativan] 1 mg IVPUSH Q6H PRN - Plan Plan:: Covid Pneunomia- Remdesivir (200mg X 1, day 2-5 100mg X 4) Dexamethasone 6 mg p.o. X 10 days Levaquin 750mg Q24 Prone positioning, Oxygen support-maintain 02 saturations above 92% (Currently on BiPap FLOW 16, FIO2 80-100%), incentive spirometry, Combivent, Lovenox 40mg, Tylenol fever/pain, Telemetry Patient will remain in the ICU today on BiPAP. Will attempt to wean patient off of BiPAP as tolerated. Will contact EICU for any further recommendations. Patient may benefit form 0.5mg Haldol onetime if anxiety persists.
[2021-04-03] MEDS: Levofloxacin 750 MG Tab PO SCH (11:45)
[2021-04-03] MEDS: Enoxaparin 40 MG/0.4 ML Syringe SUBCUT SCH (11:45)
--- NOTE | 2021-04-03 13:26 | PN ---
THC Physician - Brief Progress [id number]/20/2021 13:20[facility] Laura gabriel, [facility] [place], COVID+Date of Service 04/03/2021 13:20HPI /Events of Note eICU [id number] male currently admitted to the ICU for acute hypoxic respirato ry failure secondary to Covid. Patient currently remains on BiPAP 16/10 with FiO2 90%. Patient rio ins borderline hypoxic currently satting at 80% SPO2. Discussed with excellent bedside physician in regards to patient's volume status which does not appear to be overload at this point in time. Patie nt did have a CT chest with contrast without any overt pulmonary embolus. Given bilateral groundglas s opacities/patchy infiltrates likely developing ARDS from Covid pneumonia.Recommendations-Recommend obtaining ABG at this time and increasing BiPAP to 18/12-We will recommend discussing with patient th at high likelihood of being placed on ventilator within the next 12 to 24 hours given persistent hypo xemia despite noninvasive therapy.-Recommend continuing dexamethasone and remdesivir for [id number] ient empirically on Levaquin for possible superimposed bacterial process-Recommend prone position if patient is able to tolerate on BiPAPInterventions Major-Hypoxemia - evaluation and management, Infect ion - evaluation and management, Respiratory failure - evaluation and management
[2021-04-03] MEDS: Allopurinol 100 MG Tab PO SCH (20:00)
[2021-04-03] MEDS: Pantoprazole 40 MG in Sodium Chloride 0.9% 10 ML IV SCH (20:00)
[2021-04-04] MEDS: Albuterol/Ipratropium 3.0-0.5 MG/3 ML Neb Soln NEB SCH ×6 (01:47→22:04)
[2021-04-04] MEDS: LORazepam 2 MG/ML SDV IVPUSH PRN (03:25)
[2021-04-04] MEDS: Acetaminophen 325 MG Tab PO PRN ×2 (06:13→13:21)
[2021-04-04 07:38] LABS: BLOOD UREA NITROGEN,BUN 23 mg/dL (7.0-18.0); CARBON DIOXIDE,CO2 28.7 mmol/L (21.0-32.0); CHLORIDE,CL 97 mmol/L (98-107); GLUCOSE RANDOM 117 mg/dL (74-106); POTASSIUM,K 3.7 mmol/L (3.5-5.1); SODIUM,NA 133 mmol/L (136-148)
[2021-04-04] MEDS: Pantoprazole 40 MG in Sodium Chloride 0.9% 10 ML IV SCH (09:04)
[2021-04-04] MEDS: Dexamethasone 4 MG Tab PO SCH (09:04)
[2021-04-04] MEDS: Cholecalciferol (Vitamin D3) 25 MCG Tab PO SCH (09:05)
[2021-04-04] MEDS: REMDESIVIR 100 MG in Sodium Chloride 0.9% 100 ML IV SCH (09:05)
[2021-04-04] MEDS: Metoprolol Succinate 50 MG Tab.ER PO SCH (09:06)
--- NOTE | 2021-04-04 11:23 | PN ---
THC Physician - Brief Progress [id number]/21/2021 11:19[facility] Laura gabriel, [facility] [place] - JORDYN OWEN Covid +Date of Service 04/04/2021 11:19HP I/Events of Note eICU updateDiscussed with excellent bedside physician in regards to acute hypoxic re spiratory failure requiring BiPAP. Patient is currently at 48 hours on BiPAP and has fluctuating satu rations. Around the time of discussion patient sats around 95% and was sitting up in a chair. Patient 's tidal volume continues to be around 1 L and his IPAP was decreased to 14 and EPAP is currently at 12. Will consider switching over to CPAP if patient continues have large tidal volumes. Will reassess in 24 hours if patient continues to be tachypneic and/or has worsening hypoxia will consider intubat ion at that time.Interventions Major-Hypoxemia - evaluation and management, Respiratory failure - rosina luation and management
[2021-04-04] MEDS: Enoxaparin 40 MG/0.4 ML Syringe SUBCUT SCH (11:27)
[2021-04-04] MEDS: Levofloxacin 750 MG Tab PO SCH (11:27)
--- NOTE | 2021-04-04 14:13 | US ---
INDICATION: Bilateral leg pain, left greater than right. TECHNIQUE: : Ultrasound venous duplex lower extremity bilateral. Compression venous exam was performed using khan-scale, color Doppler, and spectral Doppler imaging. COMPARISON: Ultrasound 08/09/2017. FINDINGS: Sonographic imaging demonstrates the right common femoral, proximal deep femoral, femoral, and popliteal veins to be fully compressible with normal color Doppler blood flow. Posterior tibial veins were not evaluated. Sonographic imaging demonstrates the left common femoral and proximal deep femoral veins to be fully compressible with normal color Doppler blood flow. There is thrombus with in the left mid femoral vein and distal femoral vein extending caudally into the popliteal vein. Posterior tibial veins were not evaluated. IMPRESSION: Deep vein thrombosis within the left mid and distal femoral vein extending into the popliteal vein. Findings discussed with Dr. Hannah Mcclain at 14:09 on 04/04/2021. Dictated by Carlton Scales MD @ 04/04/2021 2:11:35 PM Dictated by: Carlton Scales MD @ 04/04/2021 14:11:39 (Electronically Signed)
[2021-04-04] MEDS ORDERED: Enoxaparin 150 MG/1 ML Syringe SUBCUT ONE (14:39)
--- NOTE | 2021-04-04 15:58 | PCM.PN ---
- General Info Date of Service: 04/04/21 Subjective Update: Patient states he feels tired, but denies increasing chest pain, shortness of breath, wheezing. Patient does state bilateral calf pain. Denies fever, chills, nausea, vomiting. Patient still on BiPAP, IPAP 14/EPAP 12 FiO2 80%. - Review of Systems General: Denies: Fever, Chills Pulmonary: Denies: Shortness of Breath, Pleuritic Chest Pain, Cough Cardiovascular: Denies: Chest Pain, Edema Gastrointestinal: Denies: Abdominal Pain, Nausea, Vomiting Musculoskeletal: Reports: Leg Pain (calf pain bilaterally, worse on left) Neurological: Denies: Confusion, Dizziness - Patient Data Vitals - Most Recent: Last Vital Signs Temp 98.3 F 04/04/21 13:00 Pulse 70 04/04/21 09:06 Resp 21 H 04/04/21 15:00 BP 134/58 L 04/04/21 15:00 Pulse Ox 91 L 04/04/21 15:00 Weight - Most Recent: 347 lb 1.6 oz I&O - Last 24 Hours: Intake & Output 04/04/21 04/04/21 04/04/21 06:59 14:59 22:59 Intake Total 800 Output Total 500 Balance 300 Lab Results Last 24 Hours: Laboratory Results - last 24 hr 04/04/21 04/04/21 Range/Units 07:06 07:06 WBC 13.62 H (4.0-11.0) K/uL RBC 4.32 L (4.50-5.90) M/uL Hgb 13.0 (13.0-17.0) g/dL Hct 37.9 L (38.0-50.0) % MCV 87.7 (80.0-98.0) fL MCH 30.1 (27.0-32.0) pg MCHC 34.3 (31.0-37.0) g/dL RDW Std Deviation 44.3 (28.0-62.0) fl RDW Coeff of Ella 14 (11.0-15.0) % Plt Count 233 (150-400) K/uL MPV 9.70 (7.40-12.00) fL Neut % (Auto) 89.7 H (48.0-80.0) % Lymph % (Auto) 6.2 L (16.0-40.0) % Grand % (Auto) 3.9 (0.0-15.0) % Eos % (Auto) 0.1 (0.0-7.0) % Baso % (Auto) 0.1 (0.0-1.5) % Neut # (Auto) 12.2 H (1.4-5.7) K/uL Lymph # (Auto) 0.8 (0.6-2.4) K/uL Grand # (Auto) 0.5 (0.0-0.8) K/uL Eos # (Auto) 0.0 (0.0-0.7) K/uL Baso # (Auto) 0.0 (0.0-0.1) K/uL Nucleated RBC % 0.0 /100WBC Nucleated RBCs # 0 K/uL Sodium 133 L (136-148) mmol/L Potassium 3.7 (3.5-5.1) mmol/L Chloride 97 L (98-107) mmol/L Carbon Dioxide 28.7 (21.0-32.0) mmol/L BUN 23 H (7.0-18.0) mg/dL Creatinine 1.2 (0.8-1.3) mg/dL Est Cr Clr Drug Dosing 77.57 mL/min Estimated GFR (MDRD) > 60.0 ml/min Glucose 117 H (74-106) mg/dL Calcium 8.7 (8.5-10.1) mg/dL Phosphorus 3.1 (2.6-4.7) mg/dL Magnesium 2.0 (1.8-2.4) mg/dL Total Bilirubin 0.9 (0.2-1.0) mg/dL AST 42 H (15-37) IU/L ALT 72 H (14-63) IU/L Alkaline Phosphatase 95 (46-116) U/L Total Protein 6.7 (6.4-8.2) g/dL Albumin 2.1 L (3.4-5.0) g/dL Globulin 4.6 H (2.6-4.0) g/dL Albumin/Globulin Ratio 0.5 L (0.9-1.6) Jose Rafael Results Last 24 Hours: Microbiology 03/31/21 08:10 Aerobic Blood Culture - Preliminary Blood - Venous - Lab Draw NO GROWTH AFTER 4 DAYS Anaerobic Blood Culture - Final 03/31/21 08:05 Aerobic Blood Culture - Preliminary Blood - Venous NO GROWTH AFTER 4 DAYS Anaerobic Blood Culture - Preliminary NO GROWTH AFTER 4 DAYS Med Orders - Current: Current Medications Acetaminophen (Acetaminophen 325 Mg Tab) 650 mg PO Q4H PRN PRN Reason: Pain (Mild 1-3)/fever Last Admin: 04/04/21 13:21 Dose: 650 mg Documented by: Albuterol/Ipratropium (Albuterol/Ipratropium 3.0-0.5 Mg/3 Ml Neb Soln) 3 ml NEB Q4HRRT [facility] Last Admin: 04/04/21 13:47 Dose: 3 ml Documented by: Albuterol/Ipratropium (Albuterol/Ipratropium 4 Gm Inhalation [place]) 0 gm INH QID PRN PRN Reason: Shortness of Breath Last Admin: 04/01/21 14:20 Dose: 2 puff Documented by: Allopurinol (Allopurinol 100 Mg Tab) 100 mg PO BEDTIME [facility] Last Admin: 04/03/21 20:00 Dose: 100 mg Documented by: Cholecalciferol (Cholecalciferol (Vitamin D3) 25 Mcg Tab) 50 mcg PO DAILY [facility] Last Admin: 04/04/21 09:05 Dose: 50 mcg Documented by: Dexamethasone (Dexamethasone 4 Mg Tab) 6 mg PO Q24H [facility] Last Admin: 04/04/21 09:04 Dose: 6 mg Documented by: Enoxaparin Sodium (Enoxaparin 150 Mg/1 Ml Syringe) 150 mg SUBCUT Q12H [facility] Guaifenesin/Codeine Phosphate (Codeine/Guaifenesin 10-100 Mg/5 Ml Syrup 5 Ml Cup) 5 ml PO Q6H PRN PRN Reason: Cough Last Admin: 04/02/21 08:18 Dose: 5 ml Documented by: Pantoprazole Sodium 40 mg/ (Sodium Chloride) 10 mls @ 300 mls/hr IV DAILY [facility] Last Admin: 04/04/21 09:04 Dose: 300 mls/hr Documented by: Levofloxacin (Levofloxacin 750 Mg Tab) 750 mg PO Q24H [facility] Last Admin: 04/04/21 11:27 Dose: 750 mg Documented by: Lorazepam (Lorazepam 2 Mg/Ml Sdv) 1 mg IVPUSH Q6H PRN PRN Reason: Anxiety Last Admin: 04/04/21 03:25 Dose: 1 mg Documented by: Metoprolol Succinate (Metoprolol Succinate 50 Mg Tab.Er) 50 mg PO DAILY [facility] Last Admin: 04/04/21 09:06 Dose: 50 mg Documented by: Sodium Chloride (Sodium Chloride 0.9% 10 Ml Syringe) 10 ml FLUSH ASDIRECTED PRN PRN Reason: Keep Vein Open Last Admin: 03/31/21 08:00 Dose: 10 ml Documented by: Sodium Chloride (Sodium Chloride 0.9% 2.5 Ml Syringe) 2.5 ml FLUSH ASDIRECTED PRN PRN Reason: Keep Vein Open Last Admin: 03/31/21 08:00 Dose: 2.5 ml Documented by: Sodium Chloride (Sodium Chloride 0.65% Nasal [place] 45 Ml Bottle) 0 ml OSWALD Q2H PRN PRN Reason: Nasal Dryness Last Admin: 04/01/21 11:33 Dose: 1 spray Documented by: Discontinued Medications Albuterol/Ipratropium (Albuterol/Ipratropium 3.0-0.5 Mg/3 Ml Neb Soln) 3 ml NEB Q4HRRT PRN PRN Reason: Shortness of Breath Albuterol/Ipratropium (Albuterol/Ipratropium 4 Gm Inhalation [place]) 2 gm INH QID [facility] Last Admin: 03/31/21 18:00 Dose: 2 puff Documented by: Allopurinol (Allopurinol 100 Mg Tab) 100 mg PO DAILY [facility] Aspirin (Aspirin 81 Mg Tab.Chew) 324 mg PO ONETIME ONE Stop: 03/31/21 07:44 Last Admin: 03/31/21 08:01 Dose: 324 mg Documented by: Benzonatate (Benzonatate 100 Mg Cap) 200 mg PO Q8H PRN PRN Reason: Cough Last Admin: 04/01/21 11:33 Dose: 200 mg Documented by: Dexamethasone (Dexamethasone 4 Mg Tab) 6 mg PO DAILY [facility] Stop: 03/31/21 10:34 Last Admin: 03/31/21 11:34 Dose: 6 mg Documented by: Enoxaparin Sodium (Enoxaparin 40 Mg/0.4 Ml Syringe) 40 mg SUBCUT Q24H [facility] Last Admin: 04/04/21 11:27 Dose: 40 mg Documented by: Enoxaparin Sodium (Enoxaparin 150 Mg/1 Ml Syringe) 110 mg SUBCUT ONETIME ONE Stop: 04/04/21 14:40 Last Admin: 04/04/21 14:46 Dose: 110 mg Documented by: Remdesivir 200 mg/ Sodium (Chloride) 250 mls @ 250 mls/hr IV ONETIME ONE Stop: 03/31/21 11:36 Last Admin: 03/31/21 11:33 Dose: 250 mls/hr Documented by: Remdesivir 100 mg/ Sodium (Chloride) 100 mls @ 100 mls/hr IV Q24H [facility] Stop: 04/04/21 10:59 Last Admin: 04/04/21 09:05 Dose: 100 mls/hr Documented by: Lactated Ringer's (Ringers, Lactated) 500 mls @ 999 mls/hr IV .BOLUS ONE Stop: 03/31/21 19:28 Last Admin: 03/31/21 19:53 Dose: 999 mls/hr Documented by: Lactated Ringer's (Ringers, Lactated) 500 mls @ 250 mls/hr IV ONETIME ONE Stop: 04/02/21 12:09 Last Admin: 04/02/21 11:03 Dose: 250 mls/hr Documented by: Iopamidol (Iopamidol 755 Mg/Ml 500 Ml Multipack Bottle) 100 ml IVPUSH ONETIME STA Stop: 03/31/21 15:26 Last Admin: 03/31/21 15:25 Dose: 100 ml Documented by: Ketorolac Tromethamine (Ketorolac 15 Mg/Ml Sdv) 15 mg IVPUSH ONETIME ONE Stop: 03/31/21 07:58 Last Admin: 03/31/21 08:01 Dose: 15 mg Documented by: Lorazepam (Lorazepam 2 Mg/Ml Sdv) 1 mg IVPUSH ONETIME ONE Stop: 04/01/21 21:01 Lorazepam (Lorazepam 2 Mg/Ml Sdv) 1 mg IVPUSH ONETIME PRN PRN Reason: Anxiety Last Admin: 04/01/21 20:36 Dose: 1 mg Documented by: - Exam General: Alert Lungs: Clear to Auscultation, Normal Respiratory Effort Cardiovascular: Regular Rate, Regular Rhythm GI/Abdominal Exam: Soft, Non-Tender Extremities: No Pedal Edema, Leg Pain (left calf pain) - Patient Data Lab Results Last 24 hrs: Laboratory Results - last 24 hr 04/04/21 04/04/21 Range/Units 07:06 07:06 WBC 13.62 H (4.0-11.0) K/uL RBC 4.32 L (4.50-5.90) M/uL Hgb 13.0 (13.0-17.0) g/dL Hct 37.9 L (38.0-50.0) % MCV 87.7 (80.0-98.0) fL MCH 30.1 (27.0-32.0) pg MCHC 34.3 (31.0-37.0) g/dL RDW Std Deviation 44.3 (28.0-62.0) fl RDW Coeff of Ella 14 (11.0-15.0) % Plt Count 233 (150-400) K/uL MPV 9.70 (7.40-12.00) fL Neut % (Auto) 89.7 H (48.0-80.0) % Lymph % (Auto) 6.2 L (16.0-40.0) % Grand % (Auto) 3.9 (0.0-15.0) % Eos % (Auto) 0.1 (0.0-7.0) % Baso % (Auto) 0.1 (0.0-1.5) % Neut # (Auto) 12.2 H (1.4-5.7) K/uL Lymph # (Auto) 0.8 (0.6-2.4) K/uL Grand # (Auto) 0.5 (0.0-0.8) K/uL Eos # (Auto) 0.0 (0.0-0.7) K/uL Baso # (Auto) 0.0 (0.0-0.1) K/uL Nucleated RBC % 0.0 /100WBC Nucleated RBCs # 0 K/uL Sodium 133 L (136-148) mmol/L Potassium 3.7 (3.5-5.1) mmol/L Chloride 97 L (98-107) mmol/L Carbon Dioxide 28.7 (21.0-32.0) mmol/L BUN 23 H (7.0-18.0) mg/dL Creatinine 1.2 (0.8-1.3) mg/dL Est Cr Clr Drug Dosing 77.57 mL/min Estimated GFR (MDRD) > 60.0 ml/min Glucose 117 H (74-106) mg/dL Calcium 8.7 (8.5-10.1) mg/dL Phosphorus 3.1 (2.6-4.7) mg/dL Magnesium 2.0 (1.8-2.4) mg/dL Total Bilirubin 0.9 (0.2-1.0) mg/dL AST 42 H (15-37) IU/L ALT 72 H (14-63) IU/L Alkaline Phosphatase 95 (46-116) U/L Total Protein 6.7 (6.4-8.2) g/dL Albumin 2.1 L (3.4-5.0) g/dL Globulin 4.6 H (2.6-4.0) g/dL Albumin/Globulin Ratio 0.5 L (0.9-1.6) Result Diagrams: 04/04/21 07:06 04/04/21 07:06 Jose Rafael Results Last 24 hrs: Microbiology 03/31/21 08:10 Aerobic Blood Culture - Preliminary Blood - Venous - Lab Draw NO GROWTH AFTER 4 DAYS Anaerobic Blood Culture - Final 03/31/21 08:05 Aerobic Blood Culture - Preliminary Blood - Venous NO GROWTH AFTER 4 DAYS Anaerobic Blood Culture - Preliminary NO GROWTH AFTER 4 DAYS Sepsis Event Note - Evaluation Sepsis Screening Result: Severe Sepsis Risk - Focused Exam Vital Signs: Vital Signs Temp Pulse Resp BP BP Pulse Ox Pulse Ox 04/04/21 15:00 21 H 134/58 L 91 L 04/04/21 14:00 35 H 133/64 94 L 04/04/21 13:00 98.3 F 31 H 144/77 H 89 L 04/04/21 12:00 36 H 125/59 L 95 04/04/21 11:00 33 H 117/68 93 L 04/04/21 10:00 20 156/60 H 93 L 04/04/21 09:06 70 153/62 H 04/04/21 09:00 33 H 107/53 L 93 L 04/04/21 08:00 98.6 F 27 H 118/53 L 90 L 04/04/21 07:00 21 H 124/66 90 L 04/04/21 06:00 20 126/72 94 L 04/04/21 05:22 91 L 04/04/21 05:00 22 H 91 L 08/21/21 04:00 97.3 F 27 H 133/73 94 L - Problem List & Annotations (1) COVID-19 SNOMED Code(s): 101351506 Code(s): U07.1 - COVID-19 Status: Acute Current Visit: Yes (2) HTN (hypertension) SNOMED Code(s): 04966341 Code(s): I10 - ESSENTIAL (PRIMARY) HYPERTENSION Status: Acute Current Visit: Yes (3) Gout SNOMED Code(s): 34306473 Code(s): M10.9 - GOUT, UNSPECIFIED Status: Acute Current Visit: Yes - Problem List Review Problem List Initiated/Reviewed/Updated: Yes - My Orders Last 24 Hours: My Active Orders 04/05/21 02:00 Enoxaparin [Lovenox] 150 mg SUBCUT Q12H 04/05/21 05:11 CBC WITH AUTO DIFF [HEME] AM COMPREHENSIVE METABOLIC PN,CMP [CHEM] AM MAGNESIUM [CHEM] AM PHOSPHORUS [CHEM] AM - Plan Plan:: Covid [place]- Remdesivir (200mg X 1, day 2-5 100mg X 4) Dexamethasone 6 mg p.o. X 10 days Levaquin 750mg Q24 Prone positioning, Oxygen support-maintain 02 saturations above 92% (patient's respiratory status improved from previous day, patient currently on BiPap IPAP 14, EPAP 12, FIO2 80%), incentive spirometry, Combivent, Lovenox 40mg, Tylenol fever/pain, Telemetry DVT-patient stated bilateral calf pain significantly worse in the left calf this morning. Venous Doppler ordered which showed DVT within the left mid and distal femoral vein extending into the popliteal vein. Started therapeutic Lovenox dose of 150mg Q12hr Patient will remain in the ICU today on BiPAP. Will attempt to wean patient off of BiPAP as tolerated. Will contact EICU for any further recommendations.
[2021-04-04] MEDS: Allopurinol 100 MG Tab PO SCH (20:47)
[2021-04-05] MEDS: Albuterol/Ipratropium 3.0-0.5 MG/3 ML Neb Soln NEB SCH ×6 (02:23→21:01)
[2021-04-05] MEDS: Enoxaparin 150 MG/1 ML Syringe SUBCUT SCH ×2 (02:23→13:23)
[2021-04-05 08:06] LABS: BLOOD UREA NITROGEN,BUN 21 mg/dL (7.0-18.0); CARBON DIOXIDE,CO2 30.7 mmol/L (21.0-32.0); CHLORIDE,CL 98 mmol/L (98-107); GLUCOSE RANDOM 107 mg/dL (74-106); POTASSIUM,K 3.7 mmol/L (3.5-5.1); SODIUM,NA 136 mmol/L (136-148)
[2021-04-05] MEDS: Cholecalciferol (Vitamin D3) 25 MCG Tab PO SCH (08:57)
[2021-04-05] MEDS: Pantoprazole 40 MG in Sodium Chloride 0.9% 10 ML IV SCH (08:57)
[2021-04-05] MEDS: Dexamethasone 4 MG Tab PO SCH (09:08)
[2021-04-05] MEDS: Metoprolol Succinate 50 MG Tab.ER PO SCH (09:08)
[2021-04-05] MEDS ORDERED: Furosemide 40 MG/4 ML VIAL IVPUSH ONE ×2 (11:08→18:32)
--- NOTE | 2021-04-05 11:12 | PN ---
THC Physician - Brief Progress [id number]/22/2021 11:11ACHI [facility] Laura gabriel, [facility] [place] - [place] JORDYN VASQUEZCiro, Covid +Date of Service 04/05/2021 11:11HP I/Events of Note eICU Brief Progress NotePatient admitted for COVID related respiratory failure with escalating oxygen requirements. More recently - patient was found to have DVT yesterday, started on t herapeutic lovenox overnight. He remains currently on BPAP, on my review 28/07 with TV in the 1000s, RR in the 30-40s with MV ~40Lpm. I discussed case with bedside physician over telephone - given high oxygenation requirements, work of breathing, and desaturation with minimal activity I anticipate samuel ent will likely require intubation in the near future. Given his renal function remains intact I rocky eloise it reasonable to trial diuresis (furosemide 40mg IV x1), would change all PO meds to IV and keep patient NPO, with the intention of maintaining NIV therapy without interruption. I asked bedside serv ice to touch base with eICU in the afternoon to review the effects of the above interventions and soco riley a decision regarding intubation.Interventions Major-Respiratory failure - evaluation and management
[2021-04-05] MEDS ORDERED: Ketorolac 30 MG/ML SDV IVPUSH PRN (13:17)
[2021-04-05] MEDS: Levofloxacin 750 MG Tab PO SCH (13:19)
[2021-04-05] MEDS: Levofloxacin/Dextrose 5%-Water 750 MG in Premix Bag 1 BAG IV SCH (13:23)
--- NOTE | 2021-04-05 15:57 | PN ---
THC Physician - Brief Progress [id number]/22/2021 15:56[facility] Laura gabriel, [place] [place] ([place]) - JORDYN OWEN, Nurys +Date of Service 04/05/2021 15:56HP I/Events of Note eICU Update NoteFollowing furosemide, per report with bedside physician patient's re spiratory rate and effort has improved significantly. On my review RR down to 20s. Patient still pull ing TV in 1000s, I recommended switching patient to a CPAP mode at [id number]. Given improvement in resp iratory status reasonable to continue to monitor at this time.Interventions Major-Respiratory failure - evaluation and management
--- NOTE | 2021-04-05 16:34 | PCM.PN ---
<Adrian Ulloa - Last Filed: 04/05/21 17:40> - General Info Date of Service: 04/05/21 Admission Dx/Problem (Free Text): Admission Diagnosis/Problem Admission Diagnosis/Problem Hypoxia Subjective Update: Patient states he did not sleep well and continues to have left leg pain. Patient found to have DVT yesterday and started on therapeutic Lovenox. Overnight he had 3 watery bowel movements, C. difficile was negative. Stool cultures pending. Mild headache. No nausea, vomiting, fever or chills. No chest pain. States he does not feel well. Patient still on BiPAP, IPAP 14/EPAP 12 FiO2 increased to 90%. Patient's respiratory rate is 30. - Review of Systems General: Reports: Weakness, Fatigue HEENT: Reports: No Symptoms Pulmonary: Reports: Shortness of Breath, Cough. Denies: Pleuritic Chest Pain Cardiovascular: Reports: No Symptoms Gastrointestinal: Reports: Diarrhea Genitourinary: Reports: No Symptoms Musculoskeletal: Reports: No Symptoms Skin: Reports: No Symptoms Neurological: Reports: No Symptoms - Patient Data Vitals - Most Recent: Last Vital Signs Temp 98.1 F 04/05/21 14:00 Pulse 83 04/05/21 09:08 Resp 21 H 04/05/21 15:00 BP 124/61 04/05/21 15:00 Pulse Ox 90 L 04/05/21 15:00 Weight - Most Recent: 156.353 kg I&O - Last 24 Hours: Intake & Output 04/05/21 04/05/21 04/05/21 06:59 14:59 22:59 Intake Total 900 1000 Output Total 700 1575 Balance 200 -575 Lab Results Last 24 Hours: Laboratory Results - last 24 hr 04/05/21 04/05/21 Range/Units 05:40 07:26 WBC 15.25 H (4.0-11.0) K/uL RBC 4.11 L (4.50-5.90) M/uL Hgb 12.4 L (13.0-17.0) g/dL Hct 36.9 L (38.0-50.0) % MCV 89.8 (80.0-98.0) fL MCH 30.2 (27.0-32.0) pg MCHC 33.6 (31.0-37.0) g/dL RDW Std Deviation 45.2 (28.0-62.0) fl RDW Coeff of Ella 14 (11.0-15.0) % Plt Count 202 (150-400) K/uL MPV 10.60 (7.40-12.00) fL Neut % (Auto) 88.2 H (48.0-80.0) % Lymph % (Auto) 7.5 L (16.0-40.0) % [place] % (Auto) 3.9 (0.0-15.0) % Eos % (Auto) 0.2 (0.0-7.0) % Baso % (Auto) 0.2 (0.0-1.5) % Neut # (Auto) 13.5 H (1.4-5.7) K/uL Lymph # (Auto) 1.1 (0.6-2.4) K/uL [place] # (Auto) 0.6 (0.0-0.8) K/uL Eos # (Auto) 0.0 (0.0-0.7) K/uL Baso # (Auto) 0.0 (0.0-0.1) K/uL Nucleated RBC % 0.0 /100WBC Nucleated RBCs # 0 K/uL Sodium 136 (136-148) mmol/L Potassium 3.7 (3.5-5.1) mmol/L Chloride 98 (98-107) mmol/L Carbon Dioxide 30.7 (21.0-32.0) mmol/L BUN 21 H (7.0-18.0) mg/dL Creatinine 1.2 (0.8-1.3) mg/dL Est Cr Clr Drug Dosing 77.57 mL/min Estimated GFR (MDRD) > 60.0 ml/min Glucose 107 H (74-106) mg/dL Calcium 8.1 L (8.5-10.1) mg/dL Phosphorus 3.2 (2.6-4.7) mg/dL Magnesium 2.2 (1.8-2.4) mg/dL Total Bilirubin 0.7 (0.2-1.0) mg/dL AST 28 (15-37) IU/L ALT 53 (14-63) IU/L Alkaline Phosphatase 95 (46-116) U/L Total Protein 5.8 L (6.4-8.2) g/dL Albumin 1.9 L (3.4-5.0) g/dL Globulin 3.9 (2.6-4.0) g/dL Albumin/Globulin Ratio 0.5 L (0.9-1.6) Jose Rafael Results Last 24 Hours: Microbiology 03/31/21 08:10 Aerobic Blood Culture - Final Blood - Venous - Lab Draw NO GROWTH AFTER 5 DAYS Anaerobic Blood Culture - Final 03/31/21 08:05 Aerobic Blood Culture - Final Blood - Venous NO GROWTH AFTER 5 DAYS Anaerobic Blood Culture - Final NO GROWTH AFTER 5 DAYS 04/04/21 21:45 C. difficile Antigen & Toxins A,B - Final Stool / Feces Med Orders - Current: Current Medications Albuterol/Ipratropium (Albuterol/Ipratropium 3.0-0.5 Mg/3 Ml Neb Soln) 3 ml NEB Q4HRRT [facility] Last Admin: 04/05/21 13:31 Dose: 3 ml Documented by: Albuterol/Ipratropium (Albuterol/Ipratropium 4 Gm Inhalation [place]) 0 gm INH QID PRN PRN Reason: Shortness of Breath Last Admin: 04/01/21 14:20 Dose: 2 puff Documented by: Dexamethasone (Dexamethasone 10 Mg/Ml Sdv) 6 mg IVPUSH DAILY [facility] Enoxaparin Sodium (Enoxaparin 150 Mg/1 Ml Syringe) 150 mg SUBCUT Q12H [facility] Last Admin: 04/05/21 13:23 Dose: 150 mg Documented by: Guaifenesin/Codeine Phosphate (Codeine/Guaifenesin 10-100 Mg/5 Ml Syrup 5 Ml Cup) 5 ml PO Q6H PRN PRN Reason: Cough Last Admin: 04/02/21 08:18 Dose: 5 ml Documented by: Pantoprazole Sodium 40 mg/ (Sodium Chloride) 10 mls @ 300 mls/hr IV DAILY [facility] Last Admin: 04/05/21 08:57 Dose: 300 mls/hr Documented by: Levofloxacin/Dextrose 750 mg/ (Premix) 150 mls @ 100 mls/hr IV Q24H [facility] Last Admin: 04/05/21 13:23 Dose: 100 mls/hr Documented by: Ketorolac Tromethamine (Ketorolac 30 Mg/Ml Sdv) 30 mg IVPUSH Q6H PRN PRN Reason: Fever Stop: 04/10/21 13:18 Lorazepam (Lorazepam 2 Mg/Ml Sdv) 1 mg IVPUSH Q6H PRN PRN Reason: Anxiety Last Admin: 04/04/21 03:25 Dose: 1 mg Documented by: Sodium Chloride (Sodium Chloride 0.9% 10 Ml Syringe) 10 ml FLUSH ASDIRECTED PRN PRN Reason: Keep Vein Open Last Admin: 03/31/21 08:00 Dose: 10 ml Documented by: Sodium Chloride (Sodium Chloride 0.9% 2.5 Ml Syringe) 2.5 ml FLUSH ASDIRECTED PRN PRN Reason: Keep Vein Open Last Admin: 03/31/21 08:00 Dose: 2.5 ml Documented by: Sodium Chloride (Sodium Chloride 0.65% Nasal [place] 45 Ml Bottle) 0 ml OSWALD Q2H PRN PRN Reason: Nasal Dryness Last Admin: 04/01/21 11:33 Dose: 1 spray Documented by: Discontinued Medications Acetaminophen (Acetaminophen 325 Mg Tab) 650 mg PO Q4H PRN PRN Reason: Pain (Mild 1-3)/fever Last Admin: 04/04/21 13:21 Dose: 650 mg Documented by: Albuterol/Ipratropium (Albuterol/Ipratropium 3.0-0.5 Mg/3 Ml Neb Soln) 3 ml NEB Q4HRRT PRN PRN Reason: Shortness of Breath Albuterol/Ipratropium (Albuterol/Ipratropium 4 Gm Inhalation [place]) 2 gm INH QID [facility] Last Admin: 03/31/21 18:00 Dose: 2 puff Documented by: Allopurinol (Allopurinol 100 Mg Tab) 100 mg PO DAILY [facility] Allopurinol (Allopurinol 100 Mg Tab) 100 mg PO BEDTIME [facility] Last Admin: 04/04/21 20:47 Dose: 100 mg Documented by: Aspirin (Aspirin 81 Mg Tab.Chew) 324 mg PO ONETIME ONE Stop: 03/31/21 07:44 Last Admin: 03/31/21 08:01 Dose: 324 mg Documented by: Benzonatate (Benzonatate 100 Mg Cap) 200 mg PO Q8H PRN PRN Reason: Cough Last Admin: 04/01/21 11:33 Dose: 200 mg Documented by: Cholecalciferol (Cholecalciferol (Vitamin D3) 25 Mcg Tab) 50 mcg PO DAILY [facility] Last Admin: 04/05/21 08:57 Dose: 50 mcg Documented by: Dexamethasone (Dexamethasone 4 Mg Tab) 6 mg PO DAILY STA Stop: 03/31/21 10:34 Last Admin: 03/31/21 11:34 Dose: 6 mg Documented by: Dexamethasone (Dexamethasone 4 Mg Tab) 6 mg PO Q24H [facility] Last Admin: 04/05/21 09:08 Dose: 6 mg Documented by: Enoxaparin Sodium (Enoxaparin 40 Mg/0.4 Ml Syringe) 40 mg SUBCUT Q24H [facility] Last Admin: 04/04/21 11:27 Dose: 40 mg Documented by: Enoxaparin Sodium (Enoxaparin 150 Mg/1 Ml Syringe) 110 mg SUBCUT ONETIME ONE Stop: 04/04/21 14:40 Last Admin: 04/04/21 14:46 Dose: 110 mg Documented by: Furosemide (Furosemide 40 Mg/4 Ml Vial) 40 mg IVPUSH NOW ONE Stop: 04/05/21 11:09 Last Admin: 04/05/21 11:20 Dose: 40 mg Documented by: Remdesivir 200 mg/ Sodium (Chloride) 250 mls @ 250 mls/hr IV ONETIME ONE Stop: 03/31/21 11:36 Last Admin: 03/31/21 11:33 Dose: 250 mls/hr Documented by: Remdesivir 100 mg/ Sodium (Chloride) 100 mls @ 100 mls/hr IV Q24H [facility]LE[facility] Stop: 04/04/21 10:59 Last Admin: 04/04/21 09:05 Dose: 100 mls/hr Documented by: Lactated Ringer's (Ringers, Lactated) 500 mls @ 999 mls/hr IV .BOLUS ONE Stop: 03/31/21 19:28 Last Admin: 03/31/21 19:53 Dose: 999 mls/hr Documented by: Lactated Ringer's (Ringers, Lactated) 500 mls @ 250 mls/hr IV ONETIME ONE Stop: 04/02/21 12:09 Last Admin: 04/02/21 11:03 Dose: 250 mls/hr Documented by: Iopamidol (Iopamidol 755 Mg/Ml 500 Ml Multipack Bottle) 100 ml IVPUSH ONETIME STA Stop: 08/17/21 15:26 Last Admin: 03/31/21 15:25 Dose: 100 ml Documented by: Ketorolac Tromethamine (Ketorolac 15 Mg/Ml Sdv) 15 mg IVPUSH ONETIME ONE Stop: 03/31/21 07:58 Last Admin: 03/31/21 08:01 Dose: 15 mg Documented by: Levofloxacin (Levofloxacin 750 Mg Tab) 750 mg PO Q24H [facility] Last Admin: 04/05/21 13:19 Dose: Not Given Documented by: Lorazepam (Lorazepam 2 Mg/Ml Sdv) 1 mg IVPUSH ONETIME ONE Stop: 04/01/21 21:01 Lorazepam (Lorazepam 2 Mg/Ml Sdv) 1 mg IVPUSH ONETIME PRN PRN Reason: Anxiety Last Admin: 04/01/21 20:36 Dose: 1 mg Documented by: Metoprolol Succinate (Metoprolol Succinate 50 Mg Tab.Er) 50 mg PO DAILY [facility] Last Admin: 04/05/21 09:08 Dose: 50 mg Documented by: - Exam General: Lethargic HEENT: Pupils Equal Neck: Supple. No: JVD Lungs: Decreased Breath Sounds, Crackles Cardiovascular: Regular Rate, Regular Rhythm GI/Abdominal Exam: Normal Bowel Sounds, Soft, Non-Tender Back Exam: Normal Inspection Extremities: Normal Inspection, No Pedal Edema. No: Alanis's Sign, Leg Pain Peripheral Pulses: 2+: Dorsalis Pedis (L), Dorsalis Pedis (R) Skin: Warm, Dry, Intact Neurological: No New Focal Deficit - Patient Data Lab Results Last 24 hrs: Laboratory Results - last 24 hr 04/05/21 04/05/21 Range/Units 05:40 07:26 WBC 15.25 H (4.0-11.0) K/uL RBC 4.11 L (4.50-5.90) M/uL Hgb 12.4 L (13.0-17.0) g/dL Hct 36.9 L (38.0-50.0) % MCV 89.8 (80.0-98.0) fL MCH 30.2 (27.0-32.0) pg MCHC 33.6 (31.0-37.0) g/dL RDW Std Deviation 45.2 (28.0-62.0) fl RDW Coeff of Ella 14 (11.0-15.0) % Plt Count 202 (150-400) K/uL MPV 10.60 (7.40-12.00) fL Neut % (Auto) 88.2 H (48.0-80.0) % Lymph % (Auto) 7.5 L (16.0-40.0) % [place] % (Auto) 3.9 (0.0-15.0) % Eos % (Auto) 0.2 (0.0-7.0) % Baso % (Auto) 0.2 (0.0-1.5) % Neut # (Auto) 13.5 H (1.4-5.7) K/uL Lymph # (Auto) 1.1 (0.6-2.4) K/uL [place] # (Auto) 0.6 (0.0-0.8) K/uL Eos # (Auto) 0.0 (0.0-0.7) K/uL Baso # (Auto) 0.0 (0.0-0.1) K/uL Nucleated RBC % 0.0 /100WBC Nucleated RBCs # 0 K/uL Sodium 136 (136-148) mmol/L Potassium 3.7 (3.5-5.1) mmol/L Chloride 98 (98-107) mmol/L Carbon Dioxide 30.7 (21.0-32.0) mmol/L BUN 21 H (7.0-18.0) mg/dL Creatinine 1.2 (0.8-1.3) mg/dL Est Cr Clr Drug Dosing 77.57 mL/min Estimated GFR (MDRD) > 60.0 ml/min Glucose 107 H (74-106) mg/dL Calcium 8.1 L (8.5-10.1) mg/dL Phosphorus 3.2 (2.6-4.7) mg/dL Magnesium 2.2 (1.8-2.4) mg/dL Total Bilirubin 0.7 (0.2-1.0) mg/dL AST 28 (15-37) IU/L ALT 53 (14-63) IU/L Alkaline Phosphatase 95 (46-116) U/L Total Protein 5.8 L (6.4-8.2) g/dL Albumin 1.9 L (3.4-5.0) g/dL Globulin 3.9 (2.6-4.0) g/dL Albumin/Globulin Ratio 0.5 L (0.9-1.6) Result Diagrams: 04/05/21 05:40 04/05/21 07:26 Jose Rafael Results Last 24 hrs: Microbiology 03/31/21 08:10 Aerobic Blood Culture - Final Blood - Venous - Lab Draw NO GROWTH AFTER 5 DAYS Anaerobic Blood Culture - Final 03/31/21 08:05 Aerobic Blood Culture - Final Blood - Venous NO GROWTH AFTER 5 DAYS Anaerobic Blood Culture - Final NO GROWTH AFTER 5 DAYS 04/04/21 21:45 C. difficile Antigen & Toxins A,B - Final Stool / Feces Sepsis Event Note - Evaluation Sepsis Screening Result: Severe Sepsis Risk - Focused Exam Vital Signs: Vital Signs Temp Pulse Resp BP BP Pulse Ox Pulse Ox 04/05/21 15:00 21 H 124/61 90 L 04/05/21 14:00 98.1 F 31 H 135/68 89 L 04/05/21 13:00 28 H 127/69 92 L 04/05/21 12:00 96.5 F L 30 H 127/64 90 L 04/05/21 11:00 34 H 139/68 91 L 04/05/21 10:00 31 H 114/77 84 L 04/05/21 09:08 83 134/66 04/05/21 09:00 32 H 124/66 89 L 04/05/21 08:00 99.7 F 33 H 134/66 87 L 04/05/21 07:00 29 H 130/62 90 L 04/05/21 06:00 19 134/64 88 L 04/05/21 05:17 90 L 04/05/21 05:00 19 136/71 91 L - Problem List Review Problem List Initiated/Reviewed/Updated: Yes - My Orders Last 24 Hours: My Active Orders 04/05/21 Breakfast NPO Now [Nothing per Oral Now Diet] [DIET] 04/05/21 07:26 PROCALCITONIN [REF] Routine 04/05/21 13:00 Levofloxacin/Dextrose 5%-Water [Levaquin in D5W 750 MG/150 ML] 750 mg Premix Bag 1 bag IV Q24H 04/05/21 13:17 Ketorolac [Toradol] 30 mg IVPUSH Q6H PRN 04/06/21 05:11 CBC WITH AUTO DIFF [HEME] AM CMP [COMPREHENSIVE METABOLIC PN,CMP] [CHEM] AM MAGNESIUM [CHEM] AM PHOSPHORUS [CHEM] AM 04/06/21 09:00 dexAMETHasone [Decadron] 6 mg IVPUSH DAILY - Plan Plan:: 50-year-old admitted for Covid pneumonia, found to have DVT in his left mid and distal femoral vein into the popliteal. Patient's left leg pain is better than yesterday but is still painful. Patient is on therapeutic Lovenox at 150 mg every 12 hours. Patient's oxygen requirements continued to increase. He completed remdesivir yesterday. He continues on dexamethasone. Spoke with the patient and advised proning as much as possible. Patient was agreeable. Incentive spirometry. Combivent. Tylenol for pain or fever. Continue telemetry. Continue Lovenox 150 mg bid. As per eICU recommendations, we will: Switch all p.o. medications to IV. Do not take BiPAP off for medications. IV Lasix 40 mg once. Continue IV Levaquin 750mg Q24 Follow-up with the eICU this afternoon for further recommendations. <Arian Brown - Last Filed: 04/05/21 18:59> - Patient Data Vitals - Most Recent: Last Vital Signs Temp 36.3 C 04/05/21 17:00 Pulse 83 04/05/21 09:08 Resp 22 H 04/05/21 18:00 BP 132/66 04/05/21 18:00 Pulse Ox 92 L 04/05/21 18:00 I&O - Last 24 Hours: Intake & Output 04/05/21 04/05/21 04/05/21 06:59 14:59 22:59 Intake Total 900 1000 Output Total 700 1575 Balance 200 -575 Lab Results Last 24 Hours: Laboratory Results - last 24 hr 04/05/21 04/05/21 Range/Units 05:40 07:26 WBC 15.25 H (4.0-11.0) K/uL RBC 4.11 L (4.50-5.90) M/uL Hgb 12.4 L (13.0-17.0) g/dL Hct 36.9 L (38.0-50.0) % MCV 89.8 (80.0-98.0) fL MCH 30.2 (27.0-32.0) pg MCHC 33.6 (31.0-37.0) g/dL RDW Std Deviation 45.2 (28.0-62.0) fl RDW Coeff of Ella 14 (11.0-15.0) % Plt Count 202 (150-400) K/uL MPV 10.60 (7.40-12.00) fL Neut % (Auto) 88.2 H (48.0-80.0) % Lymph % (Auto) 7.5 L (16.0-40.0) % [place] % (Auto) 3.9 (0.0-15.0) % Eos % (Auto) 0.2 (0.0-7.0) % Baso % (Auto) 0.2 (0.0-1.5) % Neut # (Auto) 13.5 H (1.4-5.7) K/uL Lymph # (Auto) 1.1 (0.6-2.4) K/uL [place] # (Auto) 0.6 (0.0-0.8) K/uL Eos # (Auto) 0.0 (0.0-0.7) K/uL Baso # (Auto) 0.0 (0.0-0.1) K/uL Nucleated RBC % 0.0 /100WBC Nucleated RBCs # 0 K/uL Sodium 136 (136-148) mmol/L Potassium 3.7 (3.5-5.1) mmol/L Chloride 98 (98-107) mmol/L Carbon Dioxide 30.7 (21.0-32.0) mmol/L BUN 21 H (7.0-18.0) mg/dL Creatinine 1.2 (0.8-1.3) mg/dL Est Cr Clr Drug Dosing 77.57 mL/min Estimated GFR (MDRD) > 60.0 ml/min Glucose 107 H (74-106) mg/dL Calcium 8.1 L (8.5-10.1) mg/dL Phosphorus 3.2 (2.6-4.7) mg/dL Magnesium 2.2 (1.8-2.4) mg/dL Total Bilirubin 0.7 (0.2-1.0) mg/dL AST 28 (15-37) IU/L ALT 53 (14-63) IU/L Alkaline Phosphatase 95 (46-116) U/L Total Protein 5.8 L (6.4-8.2) g/dL Albumin 1.9 L (3.4-5.0) g/dL Globulin 3.9 (2.6-4.0) g/dL Albumin/Globulin Ratio 0.5 L (0.9-1.6) Jose Rafael Results Last 24 Hours: Microbiology 03/31/21 08:10 Aerobic Blood Culture - Final Blood - Venous - Lab Draw NO GROWTH AFTER 5 DAYS Anaerobic Blood Culture - Final 03/31/21 08:05 Aerobic Blood Culture - Final Blood - Venous NO GROWTH AFTER 5 DAYS Anaerobic Blood Culture - Final NO GROWTH AFTER 5 DAYS 04/04/21 21:45 C. difficile Antigen & Toxins A,B - Final Stool / Feces Med Orders - Current: Current Medications Albuterol/Ipratropium (Albuterol/Ipratropium 3.0-0.5 Mg/3 Ml Neb Soln) 3 ml NEB Q4HRRT [facility] Last Admin: 04/05/21 17:28 Dose: 3 ml Documented by: Albuterol/Ipratropium (Albuterol/Ipratropium 4 Gm Inhalation [place]) 0 gm INH QID PRN PRN Reason: Shortness of Breath Last Admin: 04/01/21 14:20 Dose: 2 puff Documented by: Dexamethasone (Dexamethasone 10 Mg/Ml Sdv) 6 mg IVPUSH DAILY [facility] Enoxaparin Sodium (Enoxaparin 150 Mg/1 Ml Syringe) 150 mg SUBCUT Q12H [facility] Last Admin: 04/05/21 13:23 Dose: 150 mg Documented by: Guaifenesin/Codeine Phosphate (Codeine/Guaifenesin 10-100 Mg/5 Ml Syrup 5 Ml Cup) 5 ml PO Q6H PRN PRN Reason: Cough Last Admin: 04/02/21 08:18 Dose: 5 ml Documented by: Pantoprazole Sodium 40 mg/ (Sodium Chloride) 10 mls @ 300 mls/hr IV DAILY [facility] Last Admin: 04/05/21 08:57 Dose: 300 mls/hr Documented by: Levofloxacin/Dextrose 750 mg/ (Premix) 150 mls @ 100 mls/hr IV Q24H [facility] Last Admin: 04/05/21 13:23 Dose: 100 mls/hr Documented by: Ketorolac Tromethamine (Ketorolac 30 Mg/Ml Sdv) 30 mg IVPUSH Q6H PRN PRN Reason: Fever Stop: 04/10/21 13:18 Lorazepam (Lorazepam 2 Mg/Ml Sdv) 1 mg IVPUSH Q6H PRN PRN Reason: Anxiety Last Admin: 04/04/21 03:25 Dose: 1 mg Documented by: Sodium Chloride (Sodium Chloride 0.9% 10 Ml Syringe) 10 ml FLUSH ASDIRECTED PRN PRN Reason: Keep Vein Open Last Admin: 03/31/21 08:00 Dose: 10 ml Documented by: Sodium Chloride (Sodium Chloride 0.9% 2.5 Ml Syringe) 2.5 ml FLUSH ASDIRECTED PRN PRN Reason: Keep Vein Open Last Admin: 03/31/21 08:00 Dose: 2.5 ml Documented by: Sodium Chloride (Sodium Chloride 0.65% Nasal [place] 45 Ml Bottle) 0 ml OSWALD Q2H PRN PRN Reason: Nasal Dryness Last Admin: 04/01/21 11:33 Dose: 1 spray Documented by: Discontinued Medications Acetaminophen (Acetaminophen 325 Mg Tab) 650 mg PO Q4H PRN PRN Reason: Pain (Mild 1-3)/fever Last Admin: 04/04/21 13:21 Dose: 650 mg Documented by: Albuterol/Ipratropium (Albuterol/Ipratropium 3.0-0.5 Mg/3 Ml Neb Soln) 3 ml NEB Q4HRRT PRN PRN Reason: Shortness of Breath Albuterol/Ipratropium (Albuterol/Ipratropium 4 Gm Inhalation [place]) 2 gm INH QID [facility] Last Admin: 03/31/21 18:00 Dose: 2 puff Documented by: Allopurinol (Allopurinol 100 Mg Tab) 100 mg PO DAILY [facility] Allopurinol (Allopurinol 100 Mg Tab) 100 mg PO BEDTIME [facility] Last Admin: 04/04/21 20:47 Dose: 100 mg Documented by: Aspirin (Aspirin 81 Mg Tab.Chew) 324 mg PO ONETIME ONE Stop: 03/31/21 07:44 Last Admin: 03/31/21 08:01 Dose: 324 mg Documented by: Benzonatate (Benzonatate 100 Mg Cap) 200 mg PO Q8H PRN PRN Reason: Cough Last Admin: 04/01/21 11:33 Dose: 200 mg Documented by: Cholecalciferol (Cholecalciferol (Vitamin D3) 25 Mcg Tab) 50 mcg PO DAILY [facility] Last Admin: 04/05/21 08:57 Dose: 50 mcg Documented by: Dexamethasone (Dexamethasone 4 Mg Tab) 6 mg PO DAILY STA Stop: 03/31/21 10:34 Last Admin: 03/31/21 11:34 Dose: 6 mg Documented by: Dexamethasone (Dexamethasone 4 Mg Tab) 6 mg PO Q24H [facility] Last Admin: 04/05/21 09:08 Dose: 6 mg Documented by: Enoxaparin Sodium (Enoxaparin 40 Mg/0.4 Ml Syringe) 40 mg SUBCUT Q24H [facility] Last Admin: 04/04/21 11:27 Dose: 40 mg Documented by: Enoxaparin Sodium (Enoxaparin 150 Mg/1 Ml Syringe) 110 mg SUBCUT ONETIME ONE Stop: 04/04/21 14:40 Last Admin: 04/04/21 14:46 Dose: 110 mg Documented by: Furosemide (Furosemide 40 Mg/4 Ml Vial) 40 mg IVPUSH NOW ONE Stop: 04/05/21 11:09 Last Admin: 04/05/21 11:20 Dose: 40 mg Documented by: Furosemide (Furosemide 40 Mg/4 Ml Vial) 40 mg IVPUSH NOW ONE Stop: 04/05/21 18:33 Last Admin: 04/05/21 18:46 Dose: 40 mg Documented by: Remdesivir 200 mg/ Sodium (Chloride) 250 mls @ 250 mls/hr IV ONETIME ONE Stop: 03/31/21 11:36 Last Admin: 03/31/21 11:33 Dose: 250 mls/hr Documented by: Remdesivir 100 mg/ Sodium (Chloride) 100 mls @ 100 mls/hr IV Q24H [facility] Stop: 04/04/21 10:59 Last Admin: 04/04/21 09:05 Dose: 100 mls/hr Documented by: Lactated Ringer's (Ringers, Lactated) 500 mls @ 999 mls/hr IV .BOLUS ONE Stop: 03/31/21 19:28 Last Admin: 03/31/21 19:53 Dose: 999 mls/hr Documented by: Lactated Ringer's (Ringers, Lactated) 500 mls @ 250 mls/hr IV ONETIME ONE Stop: 04/02/21 12:09 Last Admin: 04/02/21 11:03 Dose: 250 mls/hr Documented by: Iopamidol (Iopamidol 755 Mg/Ml 500 Ml Multipack Bottle) 100 ml IVPUSH ONETIME STA Stop: 03/31/21 15:26 Last Admin: 03/31/21 15:25 Dose: 100 ml Documented by: Ketorolac Tromethamine (Ketorolac 15 Mg/Ml Sdv) 15 mg IVPUSH ONETIME ONE Stop: 03/31/21 07:58 Last Admin: 03/31/21 08:01 Dose: 15 mg Documented by: Levofloxacin (Levofloxacin 750 Mg Tab) 750 mg PO Q24H [facility] Last Admin: 04/05/21 13:19 Dose: Not Given Documented by: Lorazepam (Lorazepam 2 Mg/Ml Sdv) 1 mg IVPUSH ONETIME ONE Stop: 04/01/21 21:01 Lorazepam (Lorazepam 2 Mg/Ml Sdv) 1 mg IVPUSH ONETIME PRN PRN Reason: Anxiety Last Admin: 04/01/21 20:36 Dose: 1 mg Documented by: Metoprolol Succinate (Metoprolol Succinate 50 Mg Tab.Er) 50 mg PO DAILY [facility] Last Admin: 04/05/21 09:08 Dose: 50 mg Documented by: - Patient Data Lab Results Last 24 hrs: Laboratory Results - last 24 hr 04/05/21 04/05/21 Range/Units 05:40 07:26 WBC 15.25 H (4.0-11.0) K/uL RBC 4.11 L (4.50-5.90) M/uL Hgb 12.4 L (13.0-17.0) g/dL Hct 36.9 L (38.0-50.0) % MCV 89.8 (80.0-98.0) fL MCH 30.2 (27.0-32.0) pg MCHC 33.6 (31.0-37.0) g/dL RDW Std Deviation 45.2 (28.0-62.0) fl RDW Coeff of Ella 14 (11.0-15.0) % Plt Count 202 (150-400) K/uL MPV 10.60 (7.40-12.00) fL Neut % (Auto) 88.2 H (48.0-80.0) % Lymph % (Auto) 7.5 L (16.0-40.0) % [place] % (Auto) 3.9 (0.0-15.0) % Eos % (Auto) 0.2 (0.0-7.0) % Baso % (Auto) 0.2 (0.0-1.5) % Neut # (Auto) 13.5 H (1.4-5.7) K/uL Lymph # (Auto) 1.1 (0.6-2.4) K/uL [place] # (Auto) 0.6 (0.0-0.8) K/uL Eos # (Auto) 0.0 (0.0-0.7) K/uL Baso # (Auto) 0.0 (0.0-0.1) K/uL Nucleated RBC % 0.0 /100WBC Nucleated RBCs # 0 K/uL Sodium 136 (136-148) mmol/L Potassium 3.7 (3.5-5.1) mmol/L Chloride 98 (98-107) mmol/L Carbon Dioxide 30.7 (21.0-32.0) mmol/L BUN 21 H (7.0-18.0) mg/dL Creatinine 1.2 (0.8-1.3) mg/dL Est Cr Clr Drug Dosing 77.57 mL/min Estimated GFR (MDRD) > 60.0 ml/min Glucose 107 H (74-106) mg/dL Calcium 8.1 L (8.5-10.1) mg/dL Phosphorus 3.2 (2.6-4.7) mg/dL Magnesium 2.2 (1.8-2.4) mg/dL Total Bilirubin 0.7 (0.2-1.0) mg/dL AST 28 (15-37) IU/L ALT 53 (14-63) IU/L Alkaline Phosphatase 95 (46-116) U/L Total Protein 5.8 L (6.4-8.2) g/dL Albumin 1.9 L (3.4-5.0) g/dL Globulin 3.9 (2.6-4.0) g/dL Albumin/Globulin Ratio 0.5 L (0.9-1.6) Result Diagrams: 04/05/21 05:40 04/05/21 07:26 Jose Rafael Results Last 24 hrs: Microbiology 08/17/21 08:10 Aerobic Blood Culture - Final Blood - Venous - Lab Draw NO GROWTH AFTER 5 DAYS Anaerobic Blood Culture - Final 03/31/21 08:05 Aerobic Blood Culture - Final Blood - Venous NO GROWTH AFTER 5 DAYS Anaerobic Blood Culture - Final NO GROWTH AFTER 5 DAYS 04/04/21 21:45 C. difficile Antigen & Toxins A,B - Final Stool / Feces Sepsis Event Note - Focused Exam Vital Signs: Vital Signs Temp Pulse Resp BP BP Pulse Ox 04/05/21 18:00 22 H 132/66 92 L 04/05/21 17:00 36.3 C 26 H 125/72 90 L 04/05/21 16:00 23 H 131/69 89 L 04/05/21 15:00 21 H 124/61 90 L 04/05/21 14:00 36.7 C 31 H 135/68 89 L 04/05/21 13:00 28 H 127/69 92 L 04/05/21 12:00 35.8 C L 30 H 127/64 90 L 04/05/21 11:00 34 H 139/68 91 L 04/05/21 10:00 31 H 114/77 84 L 04/05/21 09:08 83 134/66 04/05/21 09:00 32 H 124/66 89 L 04/05/21 08:00 37.6 C 33 H 134/66 87 L 04/05/21 07:00 29 H 130/62 90 L - My Orders Last 24 Hours: My Active Orders 04/04/21 21:44 STOOL CULTURE/SHIGA TOXIN [MREF] Routine 04/04/21 21:56 Communication Order [RC] DAILY - Free Text/Narrative Note: I have seen and examined the patient with the resident. I have discussed findings and treatment plan with the resident. I agree with the assessment and plan in the following note.
[2021-04-06] MEDS: Enoxaparin 150 MG/1 ML Syringe SUBCUT SCH ×2 (01:52→13:10)
[2021-04-06] MEDS: Albuterol/Ipratropium 3.0-0.5 MG/3 ML Neb Soln NEB SCH ×4 (01:52→13:10)
[2021-04-06 07:04] LABS: BLOOD UREA NITROGEN,BUN 26 mg/dL (7.0-18.0); CARBON DIOXIDE,CO2 33.1 mmol/L (21.0-32.0); CHLORIDE,CL 99 mmol/L (98-107); GLUCOSE RANDOM 108 mg/dL (74-106); SODIUM,NA 140 mmol/L (136-148)
[2021-04-06] MEDS: Pantoprazole 40 MG in Sodium Chloride 0.9% 10 ML IV SCH (08:49)
[2021-04-06] MEDS ORDERED: Dexamethasone 10 MG/ML SDV IVPUSH SCH (09:00)
--- NOTE | 2021-04-06 11:19 | PN ---
THC Physician - Brief Progress [id number]/23/2021 11:18[facility] Laura Chang, [place] - [place] V[place], Covid +Date of Service 04/06/2021 11:18HP I/Events of Note eICU Progress [id number] admitted for respiratory failure attributed to COVID. History obtained from review of EMR and discussion with bedside physician over telephone.Patient had been mad e strict NPO and continued on NIV overnight, despite this and diuresis patient continues to require a n FiO2 of 90%, CPAP [id number] to maintain saturations in the low 90s/upper 80s. On camera exam he appea rs comfortable, is pulling TV in the 1500s range, RR 20s. Per report patient is requesting to have NI V taken off due to discomfort and wish to take PO.I discussed this case in depth with the bedside andre yoderian - noting our options are to proceed with intubation given his intolerance of NIPPV, or attempt a transition to HFNC, noting that his high O2 requirements (and high BMI) make it very likely he maxim l de-recruit and have a hypoxic episode, potentially resulting in a crash intubation scenario. Bedsnadia e noted that if patient were to get intubated, it would be unlikely he would be able to be transferre d out given local bed availability. Bedside will talk case over with anesthesia services, as well as patient and his family to determine how to proceed. eICU will continue to follow and assist as desire d.Interventions Major-Respiratory failure - evaluation and management
[2021-04-06] MEDS ORDERED: Furosemide 40 MG/4 ML VIAL IVPUSH ONE (11:20)
[2021-04-06] MEDS ORDERED: fentaNYL/Normal Saline 2,500 MCG in Premix Bag 1 BAG IV SCH (12:30)
[2021-04-06] MEDS ORDERED: propofoL 100 ML IV SCH ×5 (12:30→18:00)
[2021-04-06] MEDS ORDERED: propofoL 100 ML ONE ×3 (12:45→16:45)
[2021-04-06] MEDS: Levofloxacin/Dextrose 5%-Water 750 MG in Premix Bag 1 BAG IV SCH (13:09)
[2021-04-06] MEDS ORDERED: Midazolam 1 MG/ML 2 ML SDV ONE (13:49)
[2021-04-06] MEDS ORDERED: Rocuronium Bromide 50 MG/5 ML Syringe ONE (13:59)
[2021-04-06] MEDS ORDERED: Rocuronium 100 MG/10 ML Syringe IVPUSH PRN (14:08)
--- NOTE | 2021-04-06 14:25 | PN ---
THC Physician - Brief Progress [id number]/23/2021 14:24[facility] Laura gabriel, [place]UM[place] - [place] - JORDYN OWEN Covid +Date of Service 04/06/2021 14:24HP I/Events of Note eICU Update NotePatient intubatedHeight ~71in, IBW 75 kg, 6cc/kg TV ~450cc. ABG now (order placed)FiO2 100%, PEEP 20 with sats improving (~75% to now 84%)Retract ETT (it appears bedside staff doing this during my camera exam) with repeat CXRHOB > 30 degrees, mouth cares BIDRecommend fe ntanyl and propofol for sedation, target RASS of -4 at this time given degree of hypoxiaInterventions Major-Respiratory failure - evaluation and management
--- NOTE | 2021-04-06 14:34 | PCM.PR.ETI ---
Endotracheal Intubation - Endotracheal Intubation Time of Intubation: 13:30 ET Intubation Indication: Respiratory Failure Preparation: Suction, Balloon Tested, BVM Set Up, Difficult Airway Equip Airway Assessment: Obese, Large Tongue Pre-Oxygenation: Assisted with BVM, 100% FiO2 Anesthesia Meds: Etomidate, Lidocaine, Rocuronium, Succinylcholine Placement: Orotracheal, Cuffed, Uncomplicated Placement Cords Visualized: Grade 1 ETT Size In mm: 8.0 Number of Attempts: 1 Confirmed By: CO2 Indicator, Bilateral Breath Sounds, Chest Xray Tube Secured By: By RT
--- NOTE | 2021-04-06 14:35 | PCM.PR.CLI ---
Central Line Insertion - Central Line Insertion Site: subclavian (L) (small supraclavicular hematoma. no issues) Prep: CDC/MBT Guidelines, Sterile Drapes, Chlorhexidine Lumen: triple Gauge: 7Fr Ultrasound guided: No Micropuncture kit used: No CL Complications: No Secured with suture: Yes Post placement confirmation: CXR, all ports aspirated, all ports flushed CXR post-procedure: no pneumothorax, no hemothorax Dressing applied: by provider, chlorhexidine disc used, op-site dressing
--- NOTE | 2021-04-06 14:35 | CR ---
INDICATION: Post intubation. TECHNIQUE: Chest 1 view. COMPARISON: Chest radiograph 03/31/2021. FINDINGS: The right costophrenic is not fully imaged. Placement of endotracheal tube with tip 1.7 cm above the bassam. Enteric tube with tip not well seen. Extensive ground-glass opacities throughout the lungs bilaterally have worsened since prior exam. No large effusions. No pneumothorax. The cardiac silhouette is obscured. The bones are unremarkable. IMPRESSION: 1. Endotracheal tube with tip 1.7 cm above the bassam. 2. Extensive ground-glass opacities throughout the lungs bilaterally have worsened since prior exam. Dictated by Thi Durant MD @ 04/06/2021 2:35:[address] Thi Durant @ Apr 06 2021 2:35PM
--- NOTE | 2021-04-06 15:18 | CR ---
INDICATION: Post central line placement. TECHNIQUE: Chest 1 view. COMPARISON: Chest radiograph 04/06/2021 at 2:01 p.m. FINDINGS: Interval placement of a left PICC with tip in the mid SVC approximately 4 cm above the cavoatrial junction. Endotracheal tube with tip 4.2 cm above the bassam. Enteric tube with tip in the distal esophagus or gastroesophageal junction. This should be advanced. Extensive bilateral ground-glass opacities similar to prior exam. No large effusions. No pneumothorax. Normal heart size. The bones are unremarkable. IMPRESSION: 1. Left PICC with tip in the mid SVC approximately 4 cm above the cavoatrial junction. 2. Enteric tube with tip in the distal esophagus or gastroesophageal junction. This should be advanced. 3. Extensive bilateral ground-glass opacities similar to prior exam. Dictated by Thi Durant MD @ 04/06/2021 3:15:[address] Thi Durant @ Apr 06 2021 3:15PM
--- NOTE | 2021-04-06 16:59 | PCM.DCSUM1 ---
Discharge Summary - Discharge Data Discharge Date: 04/06/21 Discharge Disposition: DC/Tfer to Acute Hospital 02 Condition: Stable - Referral to Home Health Primary Care Physician: PCP None - Patient Summary/Data Hospital Course: 50-year-old male with past medical history including hypertension, gout, presented to the ER on 03/31/21 with a cough, fever and shortness of breath for one week. hypoxia. Patient's oxygen saturation was roughly 80% on arrival to the ED, patient was placed on 5-6 L nasal cannula oxygen saturations improved to 92%. Lab work on admission include white blood cell count 9.3, D-dimer 1.91, sodium 133, potassium 3.8, BUN 22, creatinine 1.5, hemoglobin A1c 5.6,. Patient was COVID-[address] angio was negative for pulmonary embolism but reported innterstitial ground glass opacities with multifocal bilateral infiltrates. PAtient was treated with Remdesivir, dexamethason and placed on prophylactic dose lovenox. His oxygen requirements did increase and he was transition to heated high flow then to CPAP. Patient reported pain in his left leg on 04/04/21. Dopplar of the leg was positive for DVT. PAtient was then place on full dose lovenox. After several days of CPAP patient was unable to tolerate trials back to heated high flow so patient was intubated. Patient is requiring PEEP of 20, FIO2 of 100 and VT of 450 to maintain sats of the 88-90s. I called multiple hospitals in [place] and there were no ICU beds. [place] electric mule operator recommended transferring to even a higher level of care than [facility] due to his young age and significant oxygen requirements. [facility] did have an ICU bed and Dr. Connolly has accepted the patient. - Discharge Plan Home Medications: Home Meds Rutin/Hesp/Bioflav/C/[id number] [Bioflex] 2 cap PO BID 01/15/14 [History] Diclofenac Sodium [Voltaren] 75 mg PO BID 06/11/19 [History] Metoprolol Succinate 50 mg PO DAILY 06/11/19 [History] allopurinoL [Zyloprim] 100 mg PO DAILY 06/11/19 [History] lisinopriL [Lisinopril] 40 mg PO DAILY 06/11/19 [History] - Discharge Summary/Plan Comment DC Time >30 min.: Yes Total # of Minutes for Discharge Time: 45 minutes of critical care time was spent managing direct patient care - Patient Data Vitals - Most Recent: Last Vital Signs Temp 36.6 C 04/06/21 12:00 Pulse 83 04/05/21 09:08 Resp 29 H 04/06/21 12:00 BP 111/70 04/06/21 12:00 Pulse Ox 88 L 04/06/21 12:00 Weight - Most Recent: 158.576 kg I&O - Last 24 hours: Intake & Output 04/06/21 04/06/21 04/06/21 06:59 14:59 22:59 Intake Total 0 0 Output Total 1500 600 Balance -1500 -600 Lab Results - Last 24 hrs: Laboratory Results - last 24 hr 04/06/21 04/06/21 04/06/21 Range/Units 06:17 06:17 14:55 WBC 12.44 H (4.0-11.0) K/uL RBC 4.17 L (4.50-5.90) M/uL Hgb 12.4 L (13.0-17.0) g/dL Hct 37.5 L (38.0-50.0) % MCV 89.9 (80.0-98.0) fL MCH 29.7 (27.0-32.0) pg MCHC 33.1 (31.0-37.0) g/dL RDW Std Deviation 45.3 (28.0-62.0) fl RDW Coeff of Ella 14 (11.0-15.0) % Plt Count 230 (150-400) K/uL MPV 9.60 (7.40-12.00) fL Neut % (Auto) 91.0 H (48.0-80.0) % Lymph % (Auto) 5.9 L (16.0-40.0) % [place] % (Auto) 2.8 (0.0-15.0) % Eos % (Auto) 0.2 (0.0-7.0) % Baso % (Auto) 0.1 (0.0-1.5) % Neut # (Auto) 11.3 H (1.4-5.7) K/uL Lymph # (Auto) 0.7 (0.6-2.4) K/uL [place] # (Auto) 0.4 (0.0-0.8) K/uL Eos # (Auto) 0.0 (0.0-0.7) K/uL Baso # (Auto) 0.0 (0.0-0.1) K/uL Nucleated RBC % 0.0 /100WBC Nucleated RBCs # 0 K/uL ABG pH 7.33 L (7.35-7.45) ABG pCO2 65 H (35-45) mmHG ABG pO2 80 (80-105) mmHG ABG HCO3 34 H (22-26) mEq/L ABG Total CO2 36 H (23-27) mmol/L ABG Base Excess 6.0 H (-2.0-3.0) Sodium 140 (136-148) mmol/L Potassium 4.0 (3.5-5.1) mmol/L Chloride 99 (98-107) mmol/L Carbon Dioxide 33.1 H (21.0-32.0) mmol/L BUN 26 H (7.0-18.0) mg/dL Creatinine 1.2 (0.8-1.3) mg/dL Est Cr Clr Drug Dosing 77.25 mL/min Estimated GFR (MDRD) > 60.0 ml/min Glucose 108 H (74-106) mg/dL Calcium 8.6 (8.5-10.1) mg/dL Phosphorus 4.0 (2.6-4.7) mg/dL Magnesium 2.5 H (1.8-2.4) mg/dL Total Bilirubin 0.7 (0.2-1.0) mg/dL AST 30 (15-37) IU/L ALT 47 (14-63) IU/L Alkaline Phosphatase 100 (46-116) U/L Total Protein 6.2 L (6.4-8.2) g/dL Albumin 1.9 L (3.4-5.0) g/dL Globulin 4.3 H (2.6-4.0) g/dL Albumin/Globulin Ratio 0.4 L (0.9-1.6) SANDI Results - Last 24 hrs: Microbiology 04/05/21 00:31 Stool Culture - Preliminary Stool / Feces Shiga Toxin I & II - Final Med Orders - Current: Current Medications Albuterol/Ipratropium (Albuterol/Ipratropium 3.0-0.5 Mg/3 Ml Neb Soln) 3 ml NEB Q4HRRT CELESTE Last Admin: 04/06/21 13:10 Dose: 3 ml Documented by: Albuterol/Ipratropium (Albuterol/Ipratropium 4 Gm Inhalation [place]) 0 gm INH QID PRN PRN Reason: Shortness of Breath Last Admin: 04/01/21 14:20 Dose: 2 puff Documented by: Dexamethasone (Dexamethasone 10 Mg/Ml Sdv) 6 mg IVPUSH DAILY CELESTE Last Admin: 04/06/21 08:49 Dose: 6 mg Documented by: Enoxaparin Sodium (Enoxaparin 150 Mg/1 Ml Syringe) 150 mg SUBCUT Q12H CELESTE Last Admin: 04/06/21 13:10 Dose: 150 mg Documented by: Guaifenesin/Codeine Phosphate (Codeine/Guaifenesin 10-100 Mg/5 Ml Syrup 5 Ml Cup) 5 ml PO Q6H PRN PRN Reason: Cough Last Admin: 04/02/21 08:18 Dose: 5 ml Documented by: Pantoprazole Sodium 40 mg/ (Sodium Chloride) 10 mls @ 300 mls/hr IV DAILY CELESTE Last Admin: 04/06/21 08:49 Dose: 300 mls/hr Documented by: Levofloxacin/Dextrose 750 mg/ (Premix) 150 mls @ 100 mls/hr IV Q24H CELESTE Last Admin: 04/06/21 13:09 Dose: 100 mls/hr Documented by: Fentanyl Citrate 2,500 mcg/ (Premix) 250 mls @ 2.5 mls/hr IV TITRATE CELESTE; Protocol Last Admin: 04/06/21 16:00 Dose: 25 mcg/hr, 2.5 mls/hr Documented by: Propofol (Diprivan 100 Ml) 100 mls @ 4.757 mls/hr IV TITRATE CELESTE; Protocol Propofol (Diprivan 100 Ml) 100 mls @ 4.757 mls/hr IV TITRATE CELESTE; Protocol Ketorolac Tromethamine (Ketorolac 30 Mg/Ml Sdv) 30 mg IVPUSH Q6H PRN PRN Reason: Fever Stop: 04/10/21 13:18 Last Admin: 04/06/21 08:52 Dose: 30 mg Documented by: Lorazepam (Lorazepam 2 Mg/Ml Sdv) 1 mg IVPUSH Q6H PRN PRN Reason: Anxiety Last Admin: 04/04/21 03:25 Dose: 1 mg Documented by: Rocuronium [place] (Rocuronium 100 Mg/10 Ml Syringe) 50 mg IVPUSH ONETIME PRN PRN Reason: Sedation Sodium Chloride (Sodium Chloride 0.9% 10 Ml Syringe) 10 ml FLUSH ASDIRECTED PRN PRN Reason: Keep Vein Open Last Admin: 03/31/21 08:00 Dose: 10 ml Documented by: Sodium Chloride (Sodium Chloride 0.9% 2.5 Ml Syringe) 2.5 ml FLUSH ASDIRECTED PRN PRN Reason: Keep Vein Open Last Admin: 03/31/21 08:00 Dose: 2.5 ml Documented by: Sodium Chloride (Sodium Chloride 0.65% Nasal [place] 45 Ml Bottle) 0 ml OSWALD Q2H PRN PRN Reason: Nasal Dryness Last Admin: 04/01/21 11:33 Dose: 1 spray Documented by: Discontinued Medications Acetaminophen (Acetaminophen 325 Mg Tab) 650 mg PO Q4H PRN PRN Reason: Pain (Mild 1-3)/fever Last Admin: 04/04/21 13:21 Dose: 650 mg Documented by: Albuterol/Ipratropium (Albuterol/Ipratropium 3.0-0.5 Mg/3 Ml Neb Soln) 3 ml NEB Q4HRRT PRN PRN Reason: Shortness of Breath Albuterol/Ipratropium (Albuterol/Ipratropium 4 Gm Inhalation [place]) 2 gm INH QID [facility] Last Admin: 03/31/21 18:00 Dose: 2 puff Documented by: Allopurinol (Allopurinol 100 Mg Tab) 100 mg PO DAILY [facility] Allopurinol (Allopurinol 100 Mg Tab) 100 mg PO BEDTIME [facility] Last Admin: 04/04/21 20:47 Dose: 100 mg Documented by: Aspirin (Aspirin 81 Mg Tab.Chew) 324 mg PO ONETIME ONE Stop: 03/31/21 07:44 Last Admin: 03/31/21 08:01 Dose: 324 mg Documented by: Benzonatate (Benzonatate 100 Mg Cap) 200 mg PO Q8H PRN PRN Reason: Cough Last Admin: 04/01/21 11:33 Dose: 200 mg Documented by: Cholecalciferol (Cholecalciferol (Vitamin D3) 25 Mcg Tab) 50 mcg PO DAILY [facility] Last Admin: 04/05/21 08:57 Dose: 50 mcg Documented by: Dexamethasone (Dexamethasone 4 Mg Tab) 6 mg PO DAILY STA Stop: 03/31/21 10:34 Last Admin: 03/31/21 11:34 Dose: 6 mg Documented by: Dexamethasone (Dexamethasone 4 Mg Tab) 6 mg PO Q24H [facility] Last Admin: 04/05/21 09:08 Dose: 6 mg Documented by: Enoxaparin Sodium (Enoxaparin 40 Mg/0.4 Ml Syringe) 40 mg SUBCUT Q24H [facility] Last Admin: 04/04/21 11:27 Dose: 40 mg Documented by: Enoxaparin Sodium (Enoxaparin 150 Mg/1 Ml Syringe) 110 mg SUBCUT ONETIME ONE Stop: 04/04/21 14:40 Last Admin: 04/04/21 14:46 Dose: 110 mg Documented by: Furosemide (Furosemide 40 Mg/4 Ml Vial) 40 mg IVPUSH NOW ONE Stop: 04/05/21 11:09 Last Admin: 04/05/21 11:20 Dose: 40 mg Documented by: Furosemide (Furosemide 40 Mg/4 Ml Vial) 40 mg IVPUSH NOW ONE Stop: 04/05/21 18:33 Last Admin: 04/05/21 18:46 Dose: 40 mg Documented by: Furosemide (Furosemide 40 Mg/4 Ml Vial) 40 mg IVPUSH NOW ONE Stop: 04/06/21 11:21 Last Admin: 04/06/21 11:30 Dose: 40 mg Documented by: Remdesivir 200 mg/ Sodium (Chloride) 250 mls @ 250 mls/hr IV ONETIME ONE Stop: 03/31/21 11:36 Last Admin: 03/31/21 11:33 Dose: 250 mls/hr Documented by: Remdesivir 100 mg/ Sodium (Chloride) 100 mls @ 100 mls/hr IV Q24H CELESTE Stop: 04/04/21 10:59 Last Admin: 04/04/21 09:05 Dose: 100 mls/hr Documented by: Lactated Ringer's (Ringers, Lactated) 500 mls @ 999 mls/hr IV .BOLUS ONE Stop: 03/31/21 19:28 Last Admin: 03/31/21 19:53 Dose: 999 mls/hr Documented by: Lactated Ringer's (Ringers, Lactated) 500 mls @ 250 mls/hr IV ONETIME ONE Stop: 04/02/21 12:09 Last Admin: 04/02/21 11:03 Dose: 250 mls/hr Documented by: Norepinephrine Bitartrate (Norepinephr-0.9% Nacl 4 Mg/250) Confirm Administered Dose 4 mg in 250 mls @ as directed IV .STK-MED ONE Stop: 04/06/21 12:47 Propofol (Diprivan 100 Ml) 100 mls @ 4.757 mls/hr IV TITRATE CELESTE; Protocol Last Admin: 04/06/21 15:34 Dose: 90 mcg/kg/min, 85.631 mls/hr Documented by: Iopamidol (Iopamidol 755 Mg/Ml 500 Ml Multipack Bottle) 100 ml IVPUSH ONETIME STA Stop: 03/31/21 15:26 Last Admin: 03/31/21 15:25 Dose: 100 ml Documented by: Ketorolac Tromethamine (Ketorolac 15 Mg/Ml Sdv) 15 mg IVPUSH ONETIME ONE Stop: 03/31/21 07:58 Last Admin: 03/31/21 08:01 Dose: 15 mg Documented by: Levofloxacin (Levofloxacin 750 Mg Tab) 750 mg PO Q24H [facility] Last Admin: 04/05/21 13:19 Dose: Not Given Documented by: Lorazepam (Lorazepam 2 Mg/Ml Sdv) 1 mg IVPUSH ONETIME ONE Stop: 04/01/21 21:01 Lorazepam (Lorazepam 2 Mg/Ml Sdv) 1 mg IVPUSH ONETIME PRN PRN Reason: Anxiety Last Admin: 04/01/21 20:36 Dose: 1 mg Documented by: Metoprolol Succinate (Metoprolol Succinate 50 Mg Tab.Er) 50 mg PO DAILY [facility] Last Admin: 04/05/21 09:08 Dose: 50 mg Documented by: Midazolam HCl (Midazolam 1 Mg/Ml 2 Ml Sdv) Confirm Administered Dose 2 mg .ROUTE .STK-MED ONE Stop: 04/06/21 13:50 Last Admin: 04/06/21 13:50 Dose: 2 mg Documented by: Rocuronium [place] (Rocuronium [place] 50 Mg/5 Ml Syringe) Confirm Administered Dose 50 mg .ROUTE .STK-MED ONE Stop: 04/06/21 14:00 Discharge Operative/Procedures - Procedures Performed Intubation Indication: Respiratory Failure
== END 2021-04-06 19:25 | DRG 137 ==
LOC: MW.ED 07:34 → MW.MS 11:20 → MW.ICU 23:00
PROVIDERS: ADMIT Student in an Organized Health Care Education/Training Program; ATTEND Student in an Organized Health Care Education/Training Program
PROC: XW033E5 Introduction of Remdesivir Anti-infective into Peripheral Vein, Percutaneous Approach, New Technology Group 5 (ICD-10-PCS; principal; 2021-03-31)
PROC: 5A0945A Assistance with Respiratory Ventilation, 24-96 Consecutive Hours, High Flow/Velocity Cannula (ICD-10-PCS; 2021-03-31)
PROC: 02HV33Z Insertion of Infusion Device into Superior Vena Cava, Percutaneous Approach (ICD-10-PCS; 2021-03-31)
PROC: 0BH17EZ Insertion of Endotracheal Airway into Trachea, Via Natural or Artificial Opening (ICD-10-PCS; 2021-03-31)
PROC: 5A1935Z Respiratory Ventilation, Less than 24 Consecutive Hours (ICD-10-PCS; 2021-03-31)
PROC: 5A09457 Assistance with Respiratory Ventilation, 24-96 Consecutive Hours, Continuous Positive Airway Pressure (ICD-10-PCS; 2021-04-02)
DX: U07.1 COVID-19 (principal); J12.82 Pneumonia due to coronavirus disease 2019; I10 Essential (primary) hypertension; M10.9 Gout, unspecified; Z79.899 Other long term (current) drug therapy; Z90.49 Acquired absence of other specified parts of digestive tract; Z96.649 Presence of unspecified artificial hip joint; E66.9 Obesity, unspecified; I82.412 Acute embolism and thrombosis of left femoral vein; J96.91 Respiratory failure, unspecified with hypoxia
CPT/HCPCS: 36415; 36600; 71045; 71045-26; 71275; 71275-26; 80053; 82248; 82306; 82803; 82947; 83036; 83605; 83735; 84100; 84145; 84443; 84484; 85025; 85379; 85610; 86140; 87040; 87045; 87046; 87324; 87449; 87899; 93005; 93970; 93970-26; 94002; 94640; 94660; 94664; 96374; 99285-25; 99291; A9270-GY; C9113; J1100; J1650; J1885; J1940; J1956; J2060; J2250; J2704; J7050; J7120; J7620-GY; J8540; Q9967; U0002